=== PATIENT | male | born 1995 | race Caucasian/White ===

== ENCOUNTER 2020-11-15 06:28 | Emergency (ER) | payer OTHER, SELFPAY ==
[2020-11-15 06:33] VITALS: BP 130/76; PULSE 77; RESP 18; TEMP 36.2; O2SAT 97; BMI 25.8
--- NOTE | 2020-11-15 07:00 | ED.MEDCLEAR ---
HPI - Medical Clearance General Chief complaint: Medical Clearance Stated complaint: Covid symptoms Time Seen by Provider: 11/15/20 07:00 Source: patient Mode of arrival: ambulatory Limitations: no limitations History of Present Illness HPI Narrative: headache, nausea, myalgias, slight rhinorrhea Onset (ago): day(s) (2) Alleged Intoxication: No Associated Symptoms: nausea/vomiting and weakness Related Information Allergies Allergy/AdvReac Type Severity Reaction Status Date / Time pollen/dogs Allergy Unknown Uncoded 02/22/13 00:00 watermelon Allergy Unknown Uncoded 02/22/13 00:00 Review of Systems Constitutional: Constitutional: Reports no additional constitutional complaints Eyes: Eyes: Reports no additional eye complaints ENT: Denies dizziness Cardiovascular: Cardiovascular: Reports no additional cardiovascular complaints Respiratory: Respiratory: Reports as per HPI Gastrointestinal: Gastrointestinal: Reports no additional gastrointestinal complaints Musculoskeletal: Musculoskeletal: Reports no additional musculoskeletal complaints Integumentary/Breasts: Skin/Breast: Denies rash Neurologic: Reports system reviewed and no additional complaints, except as documented, Denies dizziness and Denies Sensory deficit (Neuro) Psychiatric: Psychiatric: Denies anxiety [facility] Social History Social History Advance Directives: No Physical Exam Vital Signs: Vital Signs: Last Vital Signs Temp 97.1 F 11/15/20 06:33 Pulse 77 11/15/20 06:33 Resp 18 11/15/20 06:33 BP 130/76 11/15/20 06:33 Pulse Ox 97 11/15/20 06:33 Body Mass Index 25.8 Const: General: healthy appearing Nutritional Appearance: average body habitus Orientation/consciousness: oriented to person and patient oriented x3 Limitations: no limitations HENMT: Head: Yes normal to inspection Ears: external ears normal General nose exam: Normal external nose present Mouth: Normal oral and palatal mucosa present and oropharynx normal Throat: Yes posterior oropharynx normal Eyes: General: appearance normal, both eyes and all related structures Neck: Other: supple Neck: Yes normal visual inspection Chest: Chest palpation & inspection: normal inspection of the chest Resp: Auscultation: clear to auscultation bilaterally Cardio: Jugular venous distension: no JVD Rate: regular rate Rhythm: regular rhythm Heart sounds: S1 normal heart sound present and S2 normal heart sound present GI: Inspection: Yes normal to inspection Palpation (GI): Soft to palpation, nontender and No hepatosplenomegaly present Auscultation: normal bowel sounds : General: Yes no CVA tenderness Back/Spine/Pelvis: Back: no CVA tenderness Skin: General skin exam: no rashes or lesions noted Neuro: General: oriented to person and patient oriented x3 Cranial nerves: Yes CN's II-XII intact bilaterally Motor exam (neuro): 5/5 motor strength present throughout Sensory Exam: No Sensory deficit (Neuro) Extrem: General: Yes normal to inspection Psych: Appearance: grossly normal Course Course Course Narrative: well appearing MDM - Medical Clearance MDM Narrative Medical decision making narrative: will test for COVID and dc home Discharge Plan Discharge Clinical Impression: COVID-19 Patient Disposition: Home, Self-Care Instructions: COVID-19 (Coronavirus Disease 2019) (ED) Referrals: Bassam Bain MD [Primary Care Provider] - 2 days
[2020-11-15 07:47] LABS: COVID-19 Test Negative (Negative)
== END 2020-11-15 08:02 | disposition home or self-care (01) ==
PROVIDERS: Emergency Provider Emergency Medicine; PCP Internal Medicine
DX: U07.1 COVID-19 (principal); R51.9 Headache, unspecified; M79.10 Myalgia, unspecified site; R11.2 Nausea with vomiting, unspecified
CPT/HCPCS: 36415; 87635; 99283

== ENCOUNTER 2021-01-16 13:00 | Outpatient (REF) | payer OTHER, SELFPAY ==
[2021-01-17 11:18] LABS: SARS COV2 PCR INHOUSE NEGATIVE (Negative)
== END 2021-01-16 13:01 | disposition home or self-care (01) ==
LOC: HO.LAB 13:00
PROVIDERS: Visit Provider Internal Medicine
DX: Z20.822 Contact with and (suspected) exposure to COVID-19 (principal)
CPT/HCPCS: C9803; U0003

== ENCOUNTER 2021-05-03 07:46 | Emergency (ER) | payer OTHER, SELFPAY ==
--- NOTE | ~2021-05-03 | XR_ITS ---
EXAMINATION: XR CHEST CLINICAL INFORMATION: Cough, shortness of breath. COMPARISON: None TECHNIQUE: Frontal view of the chest was obtained. FINDINGS: The lungs are clear. The cardiomediastinal silhouette is normal in size. There is no pleural effusion or pneumothorax. No acute osseous abnormality. XR/XR chest 1V IMPRESSION: No acute cardiopulmonary findings.
[2021-05-03 07:48] VITALS: BP 134/84; PULSE 84; RESP 18; TEMP 36.7; O2SAT 98; BMI 26.6
[2021-05-03 08:11] VITALS: BP 124/74; PULSE 73; RESP 17; TEMP 36.7; O2SAT 95
[2021-05-03 08:37] LABS: COVID-19 Test Negative (Negative); IDNOW Serial# 9DD0AD1C
[2021-05-03 08:51] LABS: Strep A Nucleic Acid Negative (Negative)
--- NOTE | 2021-05-03 09:14 | ED.GENADULT ---
HPI - General Adult General Chief complaint: General Medical Stated complaint: sob Time Seen by Provider: 05/03/21 08:06 Source: patient Mode of arrival: ambulatory History of Present Illness HPI narrative: 25-year-old male with a past medical history of asthma presenting to the ED complaining of rhinorrhea, dry cough, mild SOB, chest discomfort when coughing, generalized fatigue since yesterday. Denies fever, chills, sore throat, ear pain, recent travel, sick contacts, history of blood clots Onset (ago): day(s) Related Data Previous Rx's Medication Instructions Recorded acetaminophen [Tylenol Extra 500 mg PO Q6H PRN #20 tab 05/03/21 Strength] albuterol sulfate 2 puff INHALATION Q4-6H PRN #6.7 g 05/03/21 benzonatate [Tessalon Perles] 100 mg PO TID PRN #14 cap 05/03/21 fluticasone propionate [Flonase 2 spray INTRANASAL DAILY #16 g 05/03/21 Allergy Relief] Allergies Allergy/AdvReac Type Severity Reaction Status Date / Time pollen/dogs Allergy Unknown Uncoded 02/22/13 00:00 watermelon Allergy Unknown Uncoded 02/22/13 00:00 Review of Systems Review of Systems: Constitutional: No Fever, No Chills, + fatigue ENT/Mouth: No Ear Pain, + Nasal Congestion, No Sinus Pain, No Hoarseness, No sore throat, + Rhinorrhea, No Swallowing Difficulty Cardiovascular: + Chest Pain, + SOB Respiratory: + Cough, No Sputum, No Wheezing Gastrointestinal: No Nausea, No Vomiting, No Abdominal pain Genitourinary: No Dysuria Musculoskeletal: No joint pain, No Myalgias Skin: No Skin Lesions, No rash Neuro: No Weakness, No Numbness Yes all other systems are reviewed and are negative [facility] Past Medical History Attestation statement: The following information was validated with the patient. Social History Social History Advance Directives: No Advance Directives Information Provided: No Physical Exam Vital Signs: Vital Signs: Last Vital Signs Temp 98.0 F 05/03/21 08:11 Pulse 73 05/03/21 08:11 Resp 17 05/03/21 08:11 BP 124/74 07/15/21 08:11 Pulse Ox 95 05/03/21 08:11 Body Mass Index 26.6 Const: General: cooperative, healthy appearing and no acute distress Orientation/consciousness: patient oriented x3 Limitations: no limitations HENMT: Head: Yes normal to inspection Ears: hearing grossly normal bilaterally General nose exam: Normal external nose present Face and sinus: Yes normal facial exam Mouth: Normal oral and palatal mucosa present Throat: Yes posterior oropharynx normal, Yes tonsils normal, Yes uvula midline, No peritonsillar mass and No uvular edema Eyes: General: appearance normal, both eyes and all related structures EOM: EOMs intact bilaterally Neck: Neck: Yes normal visual inspection and Yes no meningeal signs Resp: Effort & Inspection: normal respiratory effort Auscultation: clear to auscultation bilaterally, no rales and no wheezes Cardio: Rate: regular rate Heart sounds: S1 normal heart sound present and S2 normal heart sound present GI: Inspection: Yes normal to inspection Skin: Rashes: no rashes Wounds: no wounds Neuro: General: patient oriented x3 and no meningeal signs Gait exam (Neuro): Normal gait present Extrem: General: Yes normal to inspection, Yes no pedal edema and Yes no calf tenderness Course Course Course Narrative: -COVID-19 negative -CXR unremarkable > results discussed with patient including worrisome signs and symptoms and strict return precautions, he verbalized understanding feel safe for discharge home Medical Decision Making MDM Narrative Medical decision making narrative: 25-year-old male with a past medical history of asthma presenting to the ED complaining of rhinorrhea, dry cough, mild SOB, chest discomfort when coughing, generalized fatigue since yesterday. On exam vital signs stable, NAD/well-appearing, physical exam as above, lungs CTA, no pedal edema or calf tenderness. Likely viral syndrome/COVID-19. Rule out pneumonia. Low concern for PE/ACS Plan: CXR, COVID-19 testing, rapid strep, anticipated DC home Lab Data Labs: Lab Results 05/03/21 05/03/21 Range/Units 08:09 08:33 COVID-19 (MANOJ) Negative (Negative) COVID-19 Clin Com See Note S. pyogenes GrpA CHACE Negative (Negative) Discharge Plan Discharge Clinical Impression: Acute viral syndrome Patient Disposition: Home, Self-Care Instructions: Viral Syndrome (ED) Additional Instructions: you tested negative for COVID-19 today in the emergency department as well as strep throat your x-ray was also unremarkable Use albuterol inhaler at home as needed for shortness of breath/wheezing Tessalon Perles or for cough Flonase as a nasal decongestion Rest, stay hydrated/drink plenty of fluids Please follow-up with her primary care doctor If your symptoms persist or worsen you constant worsening cough, shortness of breath, chest pain, or fever unresolved with Tylenol or Motrin at home please return to the ED Prescriptions: New albuterol sulfate 90 mcg/actuation HFA aerosol inhaler 2 puff inhalation Q4-6H PRN (Reason: shortness of breath or wheezing) Qty: 6.7 RF: 0 acetaminophen [Tylenol Extra Strength] 500 mg tablet 500 mg PO Q6H PRN (Reason: pain or fever) Qty: 20 RF: 0 benzonatate [Tessalon Perles] 100 mg capsule 100 mg PO TID PRN (Reason: cough) Qty: 14 RF: 0 fluticasone propionate [Flonase Allergy Relief] 50 mcg/actuation spray,suspension 2 spray intranasal DAILY Qty: 16 RF: 0 Referrals: Bassam Bain MD [Primary Care Provider] - 2 days Stand Alone Forms: Work/School Release
== END 2021-05-03 09:24 | disposition home or self-care (01) ==
PROVIDERS: Physician Assistant; Emergency Provider Emergency Medicine; PCP Internal Medicine
DX: B34.9 Viral infection, unspecified (principal); J45.909 Unspecified asthma, uncomplicated; Z20.822 Contact with and (suspected) exposure to COVID-19
CPT/HCPCS: 36415; 71045; 87635; 87651; 99283

== ENCOUNTER → 2021-12-24 15:04 | Outpatient (BNVA) | payer OTHER, SELFPAY | PROVIDERS: PCP Internal Medicine; Visit Provider Physician Assistant Medical | DX: M79.601 Pain in right arm (principal) | CPT/HCPCS: 72050; 99203 ==

== ENCOUNTER → 2021-12-25 14:54 | Outpatient (BNVA) | payer OTHER, SELFPAY | PROVIDERS: PCP Internal Medicine; Visit Provider Internal Medicine | DX: M79.601 Pain in right arm (principal); M54.2 Cervicalgia | CPT/HCPCS: 99213 ==

== ENCOUNTER → 2021-12-31 13:39 | Outpatient (BNVA) | payer OTHER, SELFPAY | PROVIDERS: PCP Internal Medicine; Visit Provider Internal Medicine | DX: M24.811 Other specific joint derangements of right shoulder, not elsewhere classified (principal) | CPT/HCPCS: 99213 ==

== ENCOUNTER → 2022-01-07 13:36 | Outpatient (BNVA) | payer OTHER, SELFPAY | PROVIDERS: PCP Internal Medicine; Visit Provider Internal Medicine | DX: M25.511 Pain in right shoulder (principal) | CPT/HCPCS: 73030; 99213 ==

== ENCOUNTER → 2022-01-15 13:10 | Outpatient (BNVA) | payer OTHER, SELFPAY | PROVIDERS: PCP Internal Medicine; Visit Provider Internal Medicine | DX: M25.511 Pain in right shoulder (principal) | CPT/HCPCS: 99213 ==

== ENCOUNTER → 2022-01-24 10:02 | Outpatient (BNVA) | payer OTHER, SELFPAY | PROVIDERS: PCP Internal Medicine; Visit Provider Physician Assistant | DX: M75.21 Bicipital tendinitis, right shoulder (principal) | CPT/HCPCS: 99202 ==

== ENCOUNTER → 2022-01-25 14:44 | Outpatient (BNVA) | payer OTHER, SELFPAY | PROVIDERS: PCP Internal Medicine; Visit Provider Internal Medicine | DX: M79.601 Pain in right arm (principal) | CPT/HCPCS: 99213 ==

== ENCOUNTER 2022-02-01 13:03 | Outpatient (REF) | payer OTHER, SELFPAY ==
--- NOTE | ~2022-02-01 | MR_ITS ---
EXAMINATION: MR SHOULDER WITHOUT CONTRAST, RIGHT CLINICAL INFORMATION: Shoulder pain COMPARISON: None TECHNIQUE: MRI of the shoulder without contrast was performed on a high-field scanner. FINDINGS: ROTATOR CUFF: Mild heterogeneous signal possible mild supraspinatus and infraspinatus tendinosis. No focal tear. Teres minor is intact. Possible mild subscapularis tendinosis. No muscle atrophy or fatty infiltration. BICEPS: Intact CORACOACROMIAL ARCH: The undersurface of the acromion is curved with no subacromial spur. Mild acromioclavicular arthritis. LABRUM/CAPSULE: No definite labral tear is seen. Inferior capsule is intact GLENOHUMERAL JOINT/MARROW: Marrow signal normal limits. No fracture. No significant effusion.. MR/MR shoulder RT wo con IMPRESSION: Possible mild supraspinatus, infraspinatus and subscapularis tendinosis. No focal rotator cuff tear is seen. Mild acromioclavicular arthritis.
== END 2022-02-01 13:04 | disposition home or self-care (01) ==
LOC: HO.MRI 13:03
PROVIDERS: Visit Provider Internal Medicine
DX: M25.511 Pain in right shoulder (principal)
CPT/HCPCS: 73221

== ENCOUNTER 2022-02-27 14:00 | Outpatient (RCR) | payer OTHER, SELFPAY ==
--- NOTE | 2022-03-06 15:04 | MHC.PT.DC ---
[facility] [place] Office [place] Office [place] Office [address] Julieta Ford 140 [facility] [phone] F: [phone] F: [phone] F: [phone] F: [phone] Physical Therapy Discharge Report Diagnosis: R brachial plexus injury Date of Surgery: N/A Date of Evaluation: 01/18/22 Date of Discharge: 03/06/22 Treatments to Date: 6 Cancellations to Date: 6 No Shows to Date: 1 Discharge Status: Improved Function Independent with HEP Patient Elected to Stop Discharge Summary: The patient called to discharge himself from physical therapy secondary to feeling better. He is independent with his home exercise program including a self-made vincent system to stretch his shoulder. He underwent iontophoresis treatment with great results. He is discharged per his request. Electronically signed by: Rita Henriquez PT, DPT Please sign and return to therapist. Thank you for your referral.
--- NOTE | 2022-03-06 15:05 | MHC.PT.EP ---
[facility] [place] Office [place] Office [place] Office [address] Julieta Ford [address] [phone] F: [phone] F: [phone] F: [phone] F: [phone] Physical Therapy Plan of Care Date of Evaluation: Date of Surgery: N/A Diagnosis: R brachial plexus injury Assessment: pt presents to physical therapy with pain, decreased range of motion, decreased strength, impaired functional mobility, impaired postural awareness, and gait deviations. pt is a good candidate for skilled PT due to age, potential remediation of impairments, typical disease/condition progression and prognosis, comorbidities, and motivation. pt would benefit from tailored strengthening and stretching exercise program, functional training, gait training, postural re-training, neuromuscular re-education, modalities as needed for pain, equipment safety demonstration. Frequency and Duration: The patient will be seen 2x/wk for 6 wks Short Term Goals: pt will be I w/ HEP to promote self-management of condition. pt will improve R shoulder flexion and abduction by 10 degrees to promote ease in reaching for objects on higher shelves. Penitentiary Goals: pt will report a statistically significant improvement in self-reported outcome measure, SPADI, to promote return to PLOF. pt will perform x5 reps of overhead lifting of 10# w/ proper form and mechanics and no verbal cueing to promote return to work-related activities. Treatment Plan: Modalities to reduce pain, spasms and effusion. Manual therapy to restore motion and function. Therapeutic exercise to improve strength and flexibility. Neuromuscular re-education for posture and balance. Therapeutic activities to return to functional activities of daily living. Electronically signed by: Rita Henriquez PT, DPT Please sign and return to therapist. Thank you for your referral.
== END 2022-03-06 15:05 | disposition home or self-care (01) ==
LOC: HO.PT 14:00
PROVIDERS: PCP Internal Medicine; Visit Provider Internal Medicine
DX: M75.21 Bicipital tendinitis, right shoulder (principal)
CPT/HCPCS: 97033; 97110; 97112; 97162

== ENCOUNTER → 2022-03-14 12:52 | Outpatient (BNVA) | payer OTHER, SELFPAY | PROVIDERS: PCP Internal Medicine; Visit Provider Physician Assistant | DX: M75.21 Bicipital tendinitis, right shoulder (principal) | CPT/HCPCS: 99212 ==

== ENCOUNTER 2024-03-07 21:20 | Day surgery (SDC) | payer OTHER, SELFPAY ==
--- NOTE | ~2024-03-07 | XR_ITS ---
EXAMINATION: XR SOFT TISSUE NECK CLINICAL INDICATION: Food stuck in the throat COMPARISON: Food stuck in her throat TECHNIQUE: 2 views of the soft tissue neck were obtained. FINDINGS: Soft tissue films of the neck demonstrate a normal larynx, pharynx and upper trachea. No soft tissue swelling or opaque foreign body is demonstrated. XR/XR soft tissue neck IMPRESSION: Unremarkable soft tissue neck examination.
[2024-03-07 21:22] VITALS: BP 152/102; PULSE 86; RESP 20; TEMP 37.1; O2SAT 97; BMI 31.9
--- NOTE | 2024-03-07 22:26 | ED.GENADULT ---
HPI - General Adult General Chief complaint: Skin/Abscess/Foreign Body Stated complaint: food stuck in his throat/breathing ok? Time Seen by Provider: 03/07/24 22:01 History of Present Illness HPI narrative: Patient is a 28-year-old male was eating a piece of steak at approximately 16:00. Since then was unable to swallow. Unable to keep down own saliva. There has no change in voice. There has no difficulty breathing. Unable to keep down any fluids. Came to the ED. patient from home. No systemic complaints. No significant past medical history. Not on blood thinners. Related Data Previous Rx's ?Medication ?Instructions ?Recorded acetaminophen 500 mg tablet 500 mg PO Q6H PRN pain or fever 05/03/21 (Tylenol Extra Strength) #20 tabs albuterol sulfate 90 mcg/actuation 2 puff inhalation Q4-6H PRN 05/03/21 aerosol inhaler shortness of breath or wheezing #6.7 grams benzonatate 100 mg capsule 100 mg PO TID PRN cough #14 caps 05/03/21 (Tessalon Perles) fluticasone propionate 50 2 spray intranasal DAILY #16 grams 05/03/21 mcg/actuation nasal spray,suspension (Flonase Allergy Relief) Allergies Allergy/AdvReac Type Severity Reaction Status Date / Time pollen/dogs Allergy Unknown Unknown Uncoded 03/07/24 21:25 watermelon Allergy Unknown Unknown Uncoded 03/07/24 21:25 Review of Systems Review of Systems: No fever no chills no chest pain or shortness breath no diaphoresis Yes all other systems are reviewed and are negative PMFSH Past Medical History Attestation statement: The following information was validated with the patient. 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 Oriented X3. No acute distress. Eyes: Pupils equal, round and reactive to light. ENT: Pharynx normal. Neck: Normal inspection. Neck supple. No lymph nodes noted. No crepitus CVS: Normal heart rate and rhythm. Pulses normal. Normal S1 and S2 Respiratory: No respiratory distress. Breath sounds normal. No Wheezing. No rales Abdomen: Soft and nontender. No rigidity. No distention. good BS x4 Skin: Skin warm and dry. Normal skin color. Normal skin turgor. Extremities: No lower extremity edema. Neurovascular intact to all extremities. No Lacerations. No Rash Neuro: Oriented X 3. No motor deficit. No sensory deficit. Moving all extermities. No slurred speech Medications Administered Generic Name Dose Route Start Last Admin Trade Name Freq PRN Reason Stop Dose Admin Sodium Chloride 1,000 mls @ 999 mls/hr 03/07/24 22:30 03/07/24 23:10 Ns IV 03/07/24 23:30 999 mls/hr .Q1H1M DOMINGA Administration Discontinued Medications Generic Name Dose Route Start Last Admin Trade Name Freq PRN Reason Stop Dose Admin Glucagon 1 mg 03/07/24 22:20 03/07/24 23:10 Glucagon Hcl 1 Mg Vial IVPUSH 03/07/24 22:21 1 mg ONCE ONE Administration Medical Decision Making Medical Decision Making [facility] Narrative: Patient's history consistent with food impaction. GI was contacted. A dose of glucagon with IV fluids ordered. Baseline labs ordered. Baseline labs okay. Patient's given glucagon with no relief. GI present. Anesthesia present. Patient going to the endoscopy suite Differential Diagnosis Differential Diagnoses: The differential diagnosis associated with the presentation includes Food impaction, airway compromise. Admission/Observation Consideration of admission/observation: Escalation of care including admission/observation considered Consult Healthcare Provider Management of the patient was discussed with: Fan Mail Editor (GI, anesthesia) Lab Data [facility] Lab Attestation statement: I reviewed the patient's lab results. 03/07/24 23:05 03/07/24 23:05 Labs: Lab Results 03/07/24 Range/Units 23:05 WBC 10.7 (4.8-10.8) X10*3/uL RBC 4.94 (4.60-5.80) X10*6/uL Hgb 15.3 (14.0-18.0) g/dl Hct 43.6 (42.0-52.0) % MCV 88.3 (80.0-98.0) fL MCH 31.0 (27.0-33.0) pg MCHC 35.1 (31.0-36.0) g/dl RDW 12.4 (11.0-16.0) % Plt Count 186 (160-400) X10*3/uL MPV 10.8 (9.4-12.4) fL Immature Gran % (Auto) 0.3 (0.0-0.4) % Neut % (Auto) 62.6 (45-73) % Lymph % (Auto) 26.5 (20-40) % [place] % (Auto) 6.5 (2-11) % Eos % (Auto) 3.5 (0-4) % Baso % (Auto) 0.6 (0-2) % Lymph # (Auto) 2.8 (1.2-4.9) X10*3/uL [place] # (Auto) 0.7 (0.1-1.2) X10*3/uL Eos # (Auto) 0.4 (0.0-0.4) X10*3/uL Baso # (Auto) 0.1 (0.0-0.2) X10*3/uL Abs Immat Gran (auto) 0.03 (0.00-0.03) X10*3/uL Absolute Neuts (auto) 6.7 (2.0-8.3) x10*3/uL Absolute Nucleated RBC 0.000 (0.0-0.012) X10*3/uL Nucleated RBC % (auto) 0.0 (0.0-0.2) /100WBC Sodium 144 (135-145) mmol/L Potassium 3.8 (3.3-5.1) mmol/L Chloride 108 (96-108) mmol/L Carbon Dioxide 25 (22-29) mmol/L Anion Gap 15 (12-20) BUN 14 (9-16) mg/dL Creatinine 1.07 (0.5-1.4) mg/dL Estim Creat Clear Calc 114.0 Estimated GFR > 60 Random Glucose 93 (60-115) mg/dL Calcium 9.9 (8.4-10.2) mg/dL Independent Historian Clinical information obtained from an independent historian. History obtained from or confirmed by: Spouse Discharge Plan Discharge Clinical Impression: Food impaction of esophagus Patient Disposition: Admitted As Inpatient Prescriptions: No Action albuterol sulfate 90 mcg/actuation HFA aerosol inhaler 2 puff inhalation Q4-6H PRN (Reason: shortness of breath or wheezing) Qty: 6.7 0RF acetaminophen [Tylenol Extra Strength] 500 mg tablet 500 mg PO Q6H PRN (Reason: pain or fever) Qty: 20 0RF benzonatate [Tessalon Perles] 100 mg capsule 100 mg PO TID PRN (Reason: cough) Qty: 14 0RF fluticasone propionate [Flonase Allergy Relief] 50 mcg/actuation spray,suspension 2 spray intranasal DAILY Qty: 16 0RF Rx Instructions: administer into each nostril Print Language: Italian
[2024-03-07 23:09] LABS: MANUAL DIFF FLAG NO
[2024-03-07 23:10] LABS: Basophils Absolute Auto 0.1 X10*3/uL (0.0-0.2); Basophils Percent Auto 0.6 % (0-2); Eosinophils Absolute Auto 0.4 X10*3/uL (0.0-0.4); Eosinophils Percent Auto 3.5 % (0-4); Hematocrit 43.6 % (42.0-52.0); Hemoglobin 15.3 g/dl (14.0-18.0); Imm Gran Abs Auto 0.03 X10*3/uL (0.00-0.03); Imm Gran Pct Auto 0.3 % (0.0-0.4); Lymphocytes Absolute Auto 2.8 X10*3/uL (1.2-4.9); Lymphocytes Percent Auto 26.5 % (20-40); Mean Corpuscular HGB Conc 35.1 g/dl (31.0-36.0); Mean Corpuscular Volume 88.3 fL (80.0-98.0); Mean Platelet Volume 10.8 fL (9.4-12.4); Monocytes Absolute Auto 0.7 X10*3/uL (0.1-1.2); Monocytes Percent Auto 6.5 % (2-11); Neutrophils Absolute Auto 6.7 x10*3/uL (2.0-8.3); Neutrophils Percent Auto 62.6 % (45-73); Platelet Count 186 X10*3/uL (160-400); Red Blood Count 4.94 X10*6/uL (4.60-5.80); Red Cell Distribution Width 12.4 % (11.0-16.0); White Blood Count 10.7 X10*3/uL (4.8-10.8)
[2024-03-07] MEDS: 0.9 % Sodium Chloride 1,000 ML 999 ML IV (23:10)
[2024-03-07] MEDS: glucagon HCL 1 MG VIAL IVPUSH (23:10)
--- NOTE | 2024-03-07 23:17 | PM.EVENT ---
Event Note Date of Service: 03/07/24 Event Note: GI Consult-Full note dictated Imp: Esophageal obstruction due to steak Rec: EGD tonight. Full consent obtained from him and his , including risks of bleeding and perforation. They are comfortable with this plan. Thanks Time Spent With Patient Time: Total time managing care of this patient today ____ minutes.
--- NOTE | 2024-03-07 23:19 | MHC.SHP ---
Pre-Procedural Eval Section A - 24 Hr Update-Section A only Date of Service: 03/07/24 The patient is an INPATIENT: No The patient has been examined within 24 hours of the surgical procedure. The History & Physical has been completed within 30 days and I have reviewed it.: Yes Section B - Complete if H&P > 30 days Chief Complaint: food stuck in his throat/breathing ok? Allergies: Allergies Allergy/AdvReac Type Severity Reaction Status Date / Time pollen/dogs Allergy Unknown Unknown Uncoded 03/07/24 21:25 watermelon Allergy Unknown Unknown Uncoded 03/07/24 21:25 Plan I have reviewed the history and physical and performed a pertinent physical examination on my patient. No changes have occurred unless specified. Time Spent With Patient Time: Total time managing care of this patient today ____ minutes.
[2024-03-07 23:22] LABS: Anion Gap 15 (12-20); Blood Urea Nitrogen 14 mg/dL (9-16); Calcium 9.9 mg/dL (8.4-10.2); Carbon Dioxide 25 mmol/L (22-29); Chloride 108 mmol/L (96-108); Estimated Glomerular Filt Rate > 60; Glucose Random 93 mg/dL (60-115); Potassium 3.8 mmol/L (3.3-5.1); Sodium 144 mmol/L (135-145)
--- NOTE | 2024-03-07 23:56 | CONS_ITS ---
DATE OF SERVICE: 03/07/2024 REQUESTING PHYSICIAN: Dr. Win from the emergency department. HISTORY OF PRESENT ILLNESS: This has been obtained from the patient and his . The patient is a 28-year-old healthy male, who was well up until beginning to eat his steak dinner this evening. His first bite became lodged in his esophagus and he has been unable to swallow saliva nor liquids since that time. He denies any previous history of similar problems. He typically eats very comfortably and denies any significant heartburn, dysphagia, early satiety, nausea, nor vomiting. He does have some chest discomfort at the present time, but no chest pain per se and no trouble breathing. He denies any abdominal pain. He has never had an endoscopy nor upper GI series. He did receive IV glucagon in the ER without any effect as of yet. He is still unable to swallow saliva. MEDICATIONS AT HOME: None. PAST MEDICAL HISTORY: He denies any surgeries. He had asthma as a child. He denies any medical problems such as diabetes, heart disease, or lung disease currently. 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 He does not smoke cigarettes. He stopped smoking marijuana about 8 months ago. He drinks about 5 or 6 beers most days a week. FAMILY HISTORY: Noncontributory. REVIEW OF SYSTEMS: CONSTITUTIONAL: He was feeling well up until this episode today. CARDIAC: No chest pain. PULMONARY: No cough or hemoptysis. GI: As above. URINARY: No dysuria, no hematuria. NEUROLOGIC: No headache or seizures. PHYSICAL EXAMINATION: GENERAL: The patient is a pleasant alert, fairly comfortable male, in no distress. SKIN: Warm and dry. Anicteric sclerae. NECK: Supple without lymphadenopathy. No crepitus. CHEST: Clear bilaterally. There is no chest wall crepitus. CARDIAC: Normal S1, S2. ABDOMEN: Soft, nondistended, nontender without mass. EXTREMITIES: Without edema. IMAGING DATA: He had a soft tissue x-ray of his neck that was unremarkable. LABORATORY DATA: A CBC was normal. Chemistry profile was normal. IMPRESSION: Given the patient's clinical history, I suspect the esophageal obstruction was most likely in relation to a large piece of meat as opposed to any underlying intrinsic esophageal disease. Given his refractory dysphagia, he will undergo upper endoscopy this evening. Full consent obtained from him for this, including risks of bleeding and perforation. This has been discussed with the patient and his in detail, and they are both comfortable with this plan. Thank you for the consultation. MD KELLY Olivera/DOLORES / [phone]
--- NOTE | 2024-03-08 00:33 | P.BOP_ITS ---
Brief Operative Note Date of Service: 03/07/24 Pre-op diagnosis: Esophageal obstruction from food Post-op diagnosis: same Procedure: Upper endoscopy with removal of food bolus Surgeon: Jerald Adkins MD Anesthesia: MAC Was an Fund Controller used for this Procedure?: No Estimated blood loss (mL): 2.0 Pathology: none sent Condition: stable Disposition: PACU
--- NOTE | 2024-03-08 00:35 | PM.EVENT ---
Event Note Date of Service: 03/07/24 Event Note: GI-Upper endoscopy with removal of food bolus. Full note dictated Findings: 1. Large meat bolus in mid-esophagus. Would not push into stomach. Therefore, time spent breaking it up with the biopsy forceps. Multiple pieces then removed from the patient with the retrieval net, but primarily with the large Alligator forceps. 2. Once esophagus was empty the EG Junction was visualized at 38cm. There was erythema and edema, but no significant esophagitis, ulceration, ring, stricture, nor mucosal tears. The scope easily entered the stomach. Fluid was suctioned and brief inspection appeared normal, but a complete evaluation was not done due to some retained food and fluid, particularly in the proximal stomach. Remainder of the esophagus appeared normal. Plan. PPI x 1 month. Observe. I don't think he needs an EGD nor UGI series in follow up given the otherwise negative exam. I suspect this was too large a piece of food. See me prn. D/W his significant other.. Time Spent With Patient Time: Total time managing care of this patient today ____ minutes.
[2024-03-08 00:55] VITALS: BP 140/80; PULSE 80; RESP 18; TEMP 36.3; O2SAT 96
--- NOTE | 2024-03-08 00:58 | HO.ANESPROP2 ---
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 Meds Allergies Allergy/AdvReac Type Severity Reaction Status Date / Time pollen/dogs Allergy Unknown Unknown Uncoded 03/07/24 21:25 watermelon Allergy Unknown Unknown Uncoded 03/07/24 21:25 Exam Height,Weight and Vital Signs: Height 5 ft 8 in Weight 95.254 kg Last Vital Signs Temp 97.4 F 03/08/24 00:55 Pulse 80 03/08/24 00:55 Resp 18 03/08/24 00:55 BP 140/80 H 03/08/24 00:55 Pulse Ox 96 03/08/24 00:55 O2 Del Method Room Air 03/08/24 00:55 Pertinent Lab Results Pertinent Lab Results: Laboratory Tests 03/07/24 23:05 WBC 10.7 RBC 4.94 Hgb 15.3 Hct 43.6 MCV 88.3 MCH 31.0 MCHC 35.1 RDW 12.4 Plt Count 186 MPV 10.8 Immature Gran % (Auto) 0.3 Neut % (Auto) 62.6 Lymph % (Auto) 26.5 [place] % (Auto) 6.5 Eos % (Auto) 3.5 Baso % (Auto) 0.6 Lymph # (Auto) 2.8 [place] # (Auto) 0.7 Eos # (Auto) 0.4 Baso # (Auto) 0.1 Abs Immat Gran (auto) 0.03 Absolute Neuts (auto) 6.7 Absolute Nucleated RBC 0.000 Nucleated RBC % (auto) 0.0 Sodium 144 Potassium 3.8 Chloride 108 Carbon Dioxide 25 Anion Gap 15 BUN 14 Creatinine 1.07 Estim Creat Clear Calc 114.0 Estimated GFR > 60 Random Glucose 93 Calcium 9.9 Airway Mallampati Class: II TM Dist: >3cm Neck ROM: Full Assessment and Plan Assessment Anesthesia Assessment: Anesthesia Plan Discussed and Chart Reviewed Final Anesthetic Review Family History of Problems with Anesthesia: No History of Problems with Anesthesia: No NPO: Yes ASA Class: II and Emergency Final Preanesthetic Review: No Changes in Pt Med Stat, Meds/Allgs Chart Reviewed, Consent Obtained/Reviewed and Anes Risks/Benef Reviewed Patient Risk: Low Procedure Risk: Intermediate Anesthetic Plan Anesthetic Plan: GA Disposition: Standard PACU
[2024-03-08 01:00] VITALS: BP 145/61; PULSE 80; RESP 14; O2SAT 95
[2024-03-08 01:05] VITALS: BP 117/74; PULSE 85; RESP 16; O2SAT 95
[2024-03-08 01:10] VITALS: BP 127/72; PULSE 84; RESP 16; O2SAT 95
[2024-03-08 01:25] VITALS: BP 105/75; PULSE 82; RESP 16; O2SAT 98
[2024-03-08 01:40] VITALS: BP 127/76; PULSE 70; RESP 16; TEMP 36.3; O2SAT 96
--- NOTE | 2024-03-08 01:51 | OP_ITS ---
DATE OF SERVICE: 03/07/2024 SURGEON: Jerald Adkins MD INDICATIONS: The patient presents for evaluation of acute dysphagia in relation to food. Full consent obtained from him for this, including risks of bleeding and perforation. PREOPERATIVE DIAGNOSIS: Esophageal food obstruction. POSTOPERATIVE DIAGNOSIS: Esophageal food obstruction. PROCEDURE PERFORMED: Upper endoscopy with removal of esophageal food impaction. ESTIMATED BLOOD LOSS: COMPLICATIONS: ANESTHESIA: Medication used, general anesthesia. Glucagon 1 mg IV x1. ASSISTANTS: SPECIMENS: DESCRIPTION OF PROCEDURE: The patient was placed in the supine position. The Olympus video gastroscope was passed in the posterior oropharynx and upper esophagus under direct vision. The scope was passed slowly to approximately 25 cm. At this point, a large food bolus was seen. This was able to be pushed approximately 5 or 10 cm but could not be pushed into the stomach. It appeared to be quite large and somewhat fatty. I then spent time breaking up the food bolus as best I could with a biopsy forceps. Initial pieces were withdrawn with a retrieval net. I then removed the remainder of the food bolus in pieces with the larger alligator forceps. This took numerous passes with the gastroscope to accomplish. Once the esophagus was completely empty, I was then able to achieve a good visualization. The gastroesophageal junction appeared at 38 cm. This appeared patent and allowed easy passage of the scope. There was a large amount of fluid and some food in the stomach. The fluid was suctioned away as best as possible. I did not evaluate the distal stomach nor duodenum. The proximal stomach in the forward viewing and retroflexed position appeared normal, although again there was some residual liquid and food that was obscuring the view. The scope was then withdrawn back in the esophagus. The entire esophagus was carefully inspected. I did not visualize any sign of mucosal tears, esophagitis, ulceration, stricture, nor ring. The scope was then withdrawn from the patient. He tolerated the procedure well and was returned to the recovery area in stable condition. IMPRESSION: Food impaction of esophagus, status post endoscopic removal. Overall, I suspect the obstruction was in relation to a large piece of food rather than any intrinsic esophageal disease based on the exam. At this point, I have advised him to be sure to cut up his food carefully, eat slowly, and chew thoroughly. I do not think he needs a repeat endoscopy nor GI series at this point, as long as he remains asymptomatic as he was not having any problems before this, and again I feel this was related to a large piece of food rather than any intrinsic esophageal disease. I did advise him to buy a 1-month supply of [id number] omeprazole 20 mg and to use that daily for the 1 month. I do not think he needs to be on it chronically. He has been instructed to call me if he has trouble swallowing again. However at this point, I do not think any further workup is needed. This has been discussed with his significant other as well. MD KELLY Olivera/DOLORES / [phone]
== END 2024-03-09 07:44 ==
LOC: HO.ED 03-08 00:47 → HO.SSS 03-09 08:14
PROVIDERS: Internal Medicine; Emergency Provider Emergency Medicine Emergency Medical Services; PCP Internal Medicine; Visit Provider Physician Assistant Medical
PROC: 0DJ08ZZ Inspection of Upper Intestinal Tract, Via Natural or Artificial Opening Endoscopic (ICD-10-PCS; CPT 43235; principal; 2024-03-07 11:45)
DX: T18.128A Food in esophagus causing other injury, initial encounter (principal); W44.F3XA Food entering into or through a natural orifice, initial encounter; Y93.89 Activity, other specified; Y92.9 Unspecified place or not applicable; Y99.9 Unspecified external cause status
CPT/HCPCS: 43247; 36415; 70360; 80048; 85025; 96361; 96374; 99283; 99285; J1100; J1610; J2250; J2405; J2704; J3010

== ENCOUNTER 2024-03-22 18:01 | Emergency (ER) | payer OTHER, SELFPAY ==
[2024-03-22 18:46] VITALS: BP 131/69; PULSE 98; RESP 16; TEMP 36.4; O2SAT 97; BMI 30.1
--- NOTE | 2024-03-22 18:49 | ED_ITS ---
HPI - General Adult General Chief complaint: General Medical Stated complaint: cut finger last weekend, cant move distal joint Time Seen by Provider: 03/22/24 18:49 Source: patient, RN notes reviewed and old records reviewed Mode of arrival: ambulatory Limitations: no limitations History of Present Illness ED Provider: Sandra HPI narrative: 28-year-old male presents for evaluation of a wound check. 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 require surgery He denies any injury since the initial one 1 week ago Related Data Previous Rx's ?Medication ?Instructions ?Recorded acetaminophen 500 mg tablet 500 mg PO Q6H PRN pain or fever 05/03/21 (Tylenol Extra Strength) #20 tabs albuterol sulfate 90 mcg/actuation 2 puff inhalation Q4-6H PRN 05/03/21 aerosol inhaler shortness of breath or wheezing #6.7 grams benzonatate 100 mg capsule 100 mg PO TID PRN cough #14 caps 05/03/21 (Tessalon Perles) fluticasone propionate 50 2 spray intranasal DAILY #16 grams 05/03/21 mcg/actuation nasal spray,suspension (Flonase Allergy Relief) Allergies Allergy/AdvReac Type Severity Reaction Status Date / Time No Known Allergies Allergy Verified 03/22/24 18:50 Review of Systems Musculoskeletal: Musculoskeletal: Reports limited range of motion PMFSH Social History Social History Advance Directives: No Advance Directives Information Provided: No Current occupational status: employed 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 Physical Exam ED Vital Signs: Vital Signs - 24 hr 03/22/24 18:46 Temperature 97.6 F Pulse Rate 98 Respiratory Rate 16 Blood Pressure 131/69 Pulse Oximetry 97 Oxygen Delivery Method Room Air BMI result Body Mass Index 30.1 Const General: healthy appearing, comfortable, no acute distress, alert and awake Nutritional Appearance: well nourished Orientation/consciousness: patient oriented x3 HENMT Head: Yes normocephalic and Yes atraumatic Eyes Eyelids: Yes eyelids normal Conjunctivae: conjunctivae normal Sclerae: sclerae normal Corneas: corneas normal Pupils: Equal, round and reactive pupils present EOM: EOMs intact bilaterally Neck Neck: Yes full ROM Resp Effort & Inspection: normal respiratory effort, able to speak in complete sentences and not labored Skin General skin exam: elasticity normal Neuro General: patient oriented x3 Cranial nerves: Yes Equal, round and reactive pupils present and Yes Bilaterally intact EOM present Cognition (Neuro): normal cognition Extrem Other: Patient's wound to the left 3rd finger appears to be healing well. Sutures remain intact. No surrounding erythema, edema or drainage. Patient is able to fully extend the finger at the MCP, PIP and PIP joints. He is able to flex the left 3rd finger at the MCP and PIP but not the DIP joint. He has no range of motion at the DIP joint with flexion. Medical Decision Making Medical Decision Making MDM Narrative: 28-year-old male presents for evaluation inability to move his left 3rd finger. He appears to have injury to the flexor tendon of the left 3rd finger. The injury happened 1 week ago. The patient will be referred to hand surgery. There was no additional injury. It is too soon to remove the patient's sutures. Differential Diagnosis Differential Diagnoses: The differential diagnosis associated with the presentation includes Laceration Wound check Tendon laceration Nerve injury Discharge Plan Discharge Clinical Impression: Finger injury Patient Disposition: Home, Self-Care Instructions: Tendon Laceration (ED) Additional Instructions: There is some concern that you have a flexor tendon laceration. I recommend that you follow-up with Dr. Rose Adams, hand surgery Call tomorrow morning to schedule an appointment Prescriptions: No Action albuterol sulfate 90 mcg/actuation HFA aerosol inhaler 2 puff inhalation Q4-6H PRN (Reason: shortness of breath or wheezing) Qty: 6.7 0RF acetaminophen [Tylenol Extra Strength] 500 mg tablet 500 mg PO Q6H PRN (Reason: pain or fever) Qty: 20 0RF benzonatate [Tessalon Perles] 100 mg capsule 100 mg PO TID PRN (Reason: cough) Qty: 14 0RF fluticasone propionate [Flonase Allergy Relief] 50 mcg/actuation spray,suspension 2 spray intranasal DAILY Qty: 16 0RF Rx Instructions: administer into each nostril Referrals: Rose Adams MD [Physician] - (? left 3rd finger flexor tendon laceration) Discharge Date/Time: 03/22/24 19:02 Print Language: Romanian
--- NOTE | 2024-03-22 19:01 | PC.NURSE ---
PT WAS SEEN BY TRIAGE PROVIDER AND DISCHARGED WITH RECOMMENDATIONS FOR ORTHO CONSULT
== END 2024-03-22 19:02 | disposition home or self-care (01) ==
LOC: HO.ED 18:54
PROVIDERS: Emergency Provider Internal Medicine; PCP Internal Medicine
DX: Z48.01 Encounter for change or removal of surgical wound dressing (principal); S61.213D Laceration without foreign body of left middle finger without damage to nail, subsequent encounter; W26.0XXD Contact with knife, subsequent encounter
CPT/HCPCS: 99281; 99282

== ENCOUNTER 2024-03-24 14:19 | Outpatient (AMB) | payer OTHER, SELFPAY ==
--- NOTE | 2024-03-24 14:39 | A.OFFVIS_ITS ---
Vital Signs 03/24/24 14:45 Height 5 ft 10 in Weight 210 lb BMI 30.1 Intake Visit Reasons: FC -Lt 3rd Finger Lac 03/15/25-Flexor Tendon injury Intake Note: Jesus is a 28 year old ambidextrous male who presents today for a laceration of his left middle finger 03/13/27. Patient reports that he was cutting an avocado and he cut his finger with a steak knife. he reports that he was seen at an urgent care where he received sutures. He is unable to bend the finger, he is able to fully extend. Numbness is felt at the tip of the finger. No abx. Allergies No Known Allergies Allergy (Verified 03/24/24 14:43) HPI HPI FC -Lt 3rd Finger Lac 03/15/25-Flexor Tendon injury: Details: Jesus is a 28 year old right hand dominant man who presents for a left middle finger tendon laceration, DOI: 03/13/24. He was cutting an Avocado, trying to remove the seed, and cut his finger with a steak knife. He was seen in the ED in [place] where his finger was sutured. He says he is able to fully extend his middle finger, but he is unable to bend at his fingertip since his injury. He has some numbness to the tip of the middle finger since his injury. Normal sensation to all other fingers. 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 Review of Systems Const All systems reviewed & are unremarkable except as noted in HPI and below Physical Exam Vital Signs: BMI result Body Mass Index 30.1 Const General: cooperative, healthy appearing and no acute distress Orientation/consciousness: patient oriented x3 HEENT Head: Yes normocephalic and Yes atraumatic Eyes EOM: EOMs intact bilaterally Resp Effort & Inspection: normal respiratory effort and able to speak in complete sentences Cardio Jugular venous distension: no JVD Skin General skin exam: turgor normal Rashes: no rashes Neuro General: patient oriented x3 Extrem Other: Evaluation of Left Upper Extremity: The patient is alert, oriented, and in no acute distress The patient has an oblique laceration over the volar aspect of the left middle finger middle phalanx. Neuro: Numbness in the radial aspect of the middle finger. Normal sensation in the ulnar nerve distribution of the middle finger, and normal sensation to the tips of all other digits Vascular: Cap refill brisk ROM: He can extend all his digits He can bring his thumb, index, ring, and small fingers closed to a fist, and his middle finger [ ]. No active motion at the middle finger DIP joint Skin: There is an oblique laceration extending from about the DIP flexion crease on the radial side of the middle finger obliquely and proximally over the volar aspect of the middle phalanx, sutured closed. No erythema drainage or evidence of infection. Good strong flexion at the PIP joint No active flexion at the D IP joint Decreased sensation to the radial digital nerve distribution distal to the laceration Normal sensation to the ulnar digital nerve distribution Psych Appearance: grossly normal Affect: normal affect Attitude: cooperative Assessment & Plan Assessment & Plan (1) Laceration of flexor muscle, fascia and tendon of left middle finger at wrist and hand level, initial encounter: Code(s): S66.123A - Laceration of flexor muscle, fascia and tendon of left middle finger at wrist and hand level, initial encounter Category: Medical (2) Digital nerve laceration, finger: Comment: Candy Code(s): S64.40XA - Injury of digital nerve of unspecified finger, initial encounter Category: Medical Plan Assessment & Plan: 1. Left middle finger flexor digitorum profundus tendon laceration FDS appears to be intact. DOS: 03/13/24 2. Left middle fingertip numbness, in the radial digital nerve distribution DOI: 03/13/24 I educated him about these conditions I discussed operative and non-operative treatment options The patient would like to proceed with surgery I explained that I may attempt a nerve repair to restore his fingertip sensation, but it may not be possible because of how distal the laceration is on the radial side of the finger. He expressed understanding. The risks and benefits of operative treatment were discussed with the patient and the patient wishes to proceed with surgery. These risks include, but are not limited to risk of damage to blood vessels, nerves, tendons, infection, recu rrence, incomplete relief of preoperative symptoms, persistent pain, stiffness, possible need for further surgery and the risks associated with regional blocks and anesthesia. I also educated the patient about the importance of following my instructions and the instructions of our occupational hand therapists, and of participate a in OT hand therapy for this injury. The plan is to take the patient to the operating room sometime on 03/25/24 for the following procedures: 1. Left middle finger flexor tendon repair, under general 2. Possible left middle finger radial digital nerve repair, under general All of the preoperative paperwork including the consent was reviewed today. All the patient's questions were answered. The patient is scheduled for tomorrow He denies Diabetes, blood thinners, asthma, heart, lung, kidney issues Scribed for Rose Adams MD by Sreekanth Miller, medical office technician, on 03/24/24 at 3:00 PM, EST. Medications: Discontinued acetaminophen (Tylenol Extra Strength) Discontinued Reason: Patient no longer taking 500 mg PO Q6H PRN 20 tabs 0RF pain or fever albuterol sulfate 90 mcg/actuation Discontinued Reason: Patient no longer taking 2 puffs inhalation Q4-6H PRN 6.7 grams 0RF shortness of breath or wheezing benzonatate (Tessalon Perles) Discontinued Reason: Patient no longer taking 100 mg PO TID PRN 14 caps 0RF cough fluticasone propionate 50 mcg/actuation (Flonase Allergy Relief) administer into each nostril Discontinued Reason: Patient no longer taking 2 sprays intranasal DAILY 16 grams 0RF Coding Level of Care Code New Pt Level 4 (64591) Diagnoses Laceration of flexor muscle, fascia and tendon of left middle finger at wrist and hand level, initial encounter S66.123A Digital nerve laceration, finger S64.40XA
[2024-03-24 14:45] VITALS: BMI 30.1
== END 2024-03-24 16:08 | disposition home or self-care (01) ==
PROVIDERS: PCP Internal Medicine; Visit Provider Orthopaedic Surgery
DX: S66.123A Laceration of flexor muscle, fascia and tendon of left middle finger at wrist and hand level, initial encounter (principal); S64.40XA Injury of digital nerve of unspecified finger, initial encounter
CPT/HCPCS: 99214

== ENCOUNTER → 2024-03-24 14:19 | Outpatient (BNVA) | payer OTHER, SELFPAY | PROVIDERS: PCP Internal Medicine; Visit Provider Orthopaedic Surgery ==

== ENCOUNTER 2024-03-25 10:36 | Day surgery (SDC) | payer OTHER, SELFPAY ==
[2024-03-25 12:04] VITALS: BMI 32.2
[2024-03-25 12:10] VITALS: BP 119/76; PULSE 64; RESP 16; TEMP 36.7; O2SAT 95
--- NOTE | 2024-03-25 12:35 | HO.ANESPROP2 ---
HPI - Anesthesia Eval Consult details Narrative: 28 yo M presenting for left middle finger flexor tendon repair with possible microscopic digital nerve repair PMFSH Active Problems Active Problems: All Active Problems Digital nerve laceration, finger (Acute) Laceration of flexor muscle, fascia and tendon of left middle finger at wrist and hand level, initial encounter (Acute) Food impaction of esophagus (Acute) Biceps tendonitis on right (Acute) Right upper limb pain (Acute) COVID-19 (Acute) Family History Family history of problems with anesthesia: No Surgical History History of Problems with Anesthesia: No Social History Social History Patient Tobacco Use Status: Never used Tobacco Use of substances other than those prescribed or required for medical reasons: No Are you DNR?: No Advance Directives: No Advance Directives Information Provided: Yes Current occupational status: employed 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 Meds Allergies Allergy/AdvReac Type Severity Reaction Status Date / Time No Known Allergies Allergy Verified 03/24/24 14:43 Exam Exam Date and Time: March 25, 2024 1223 Height,Weight and Vital Signs: Height 5 ft 9 in Weight 98.883 kg Airway Mallampati Class: II TM Dist: >3cm Neck ROM: Full Loose/Missing/Broken Teeth: No (patient denies any loose or broken teeth) Heart: S1S2 Lungs: CTAB Assessment and Plan Assessment Anesthesia Assessment: Anesthesia Plan Discussed and Chart Reviewed Final Anesthetic Review Family History of Problems with Anesthesia: No History of Problems with Anesthesia: No NPO: Yes ASA Class: I Final Preanesthetic Review: No Changes in Pt Med Stat, Meds/Allgs Chart Reviewed, Consent Obtained/Reviewed and Anes Risks/Benef Reviewed Patient Risk: Low Procedure Risk: Low Anesthetic Plan Anesthetic Plan: MAC: Disposition: Standard PACU
--- NOTE | 2024-03-25 13:43 | MHC.SHP ---
Pre-Procedural Eval Section A - 24 Hr Update-Section A only Date of Service: 03/25/24 The patient is an INPATIENT: No Changes since office visit: No Cold of Flu in the past 2 weeks, No New Medical Problems, No Changes in Medication and No Patient answered all questions The patient has been examined within 24 hours of the surgical procedure. The History & Physical has been completed within 30 days and I have reviewed it.: Yes Section B - Complete if H&P > 30 days Chief Complaint: Laceration of flexor muscle,Injury digital nerve Allergies: Allergies Allergy/AdvReac Type Severity Reaction Status Date / Time No Known Allergies Allergy Verified 03/24/24 14:43 Plan I have reviewed the history and physical and performed a pertinent physical examination on my patient. No changes have occurred unless specified. Time Spent With Patient Time: Total time managing care of this patient today ____ minutes.
--- NOTE | 2024-03-25 13:44 | P.OP_ITS ---
Operative Note Operative Note Date of Service: 03/25/24 Narrative: Operative Note Narrative: Preop diagnosis: 1. Left middle finger flexor digitorum profundus laceration in zone 2 Postop diagnosis: Same Procedure: 1. Left middle finger flexor digitorum profundus repair in zone 2 Surgeon: Rose Adams MD Anesthesia: General anesthesia plus regional block Findings: Left middle finger flexor digitorum profundus laceration in zone 2. The proximal cut end was located at about the A3 vincent level by the vincula. FDP repaired distal to the A4 vincent. The radial digital nerve was lacerated at its trifurcation at the D IP flexion crease. It was not repaired. Implants: None Tourniquet time: 60 minutes EBL: 5.0 ml Specimen: None Drains: None Complications: None Disposition: Brought to the recovery room in stable condition Plan: Follow-up with our OT hand therapists for a custom dorsal blocking splint and to begin the flexor tendon protocol. Follow-up in 10-14 days for wound check and suture removal Indications: The patient is 28 years old with a left middle finger FDP tendon laceration sustained while trying to get the pit out of an avocado . The risks and benefits of operative treatment, including but not limited to risk of damage to blood vessels, nerves, tendons, infection, recurrence, persistent pain or numbness, incomplete resolution of preoperative symptoms, or need for further surgery were discussed with the patient and they wished to proceed with surgery. Procedure: Once consent was obtained patient was brought back to the operating suite and placed in the operating table in a supine position. A regional block was performed by the anesthesia team. Perioperative antibiotics and anesthesia was administered by the anesthesia team. A tourniquet was applied to the proximal aspect of the left upper extremity and the limb was prepped and draped in a standard surgical fashion. The limb was elevated exsanguinated with Esmarch bandage and the tourniquet inflated to 250 mm of mercury for a total tourniquet time of 60 minutes. A Judy is a type incision was made over the volar aspect of the patient's left index finger, incorporating the oblique laceration that extended from the radial aspect of the D IP flexion crease obliquely across the middle phalanx. The incision was made through the skin to the subcutaneous tissues using a 15. Blade, and extended proximally to just distal to the A2 vincent.. Careful dissection was made down to the level of the flexor tendon sheath with care being taken to protect the neurovascular structures. The radial digital nerve was noted to be lacerated at its trifurcation at the radial aspect of the D IP flexion crease. It was not repaired. The laceration through the flexor tendon sheath was found proximal to the A4 vincent. The proximal cut end of the FDP t endon was located within the A3 vincent and restrained from further migration by the underlying vincula. The distal cut end was located at about the D IP joint, distal to the A4 vincent. The wound was washed out and debrided of any nonviable tissue. Our attention was 1st turned to the proximal cut end of the FDP tendon. I passed some 4-0 FiberWire through the end of the tendon. I then passed the suture from proximal to distal through the A4 vincent, including the needle. After cutting the vincula I was able to pass the proximal cut end of the FDP tendon for through the A4 vincent. I then placed a 25 gauge needle through the flexor tendons at about the palmar digital crease to hold the FDP tendon in place for the repair. I then performed a 4 core suture repair of the FDP tendon distal to the A4 vincent, and using the 4-0 FiberWire. An epitendinous repair was then performed using some 6 0 Prolene suture. There was no gapping at the repair site with some gentle motion of the middle finger, and I was satisfied with our repair. I think it is likely that the repair will be able to pass beneath the A4 vincent, but I did not attempt this as I did not want to stress the repair in such a manner.. At this point the tourniquet was deflated and hemostasis obtained with a brief period of local pressure and bipolar electrocautery. The wound was copiously irrigated with normal saline. The the skin edges were reapproximated with 4-0 nylon suture. The wound was infiltrated with some 0.5% plain ropivacaine for postop pain control and a sterile dressing was applied. A dorsal blocking splint was then applied holding the MCP and PIP joints in a flexed position. The patient appears to have tolerated the procedure well and with no complications. All digits were well vascularized conclusion of the case.
[2024-03-25 16:03] VITALS: BP 116/63; PULSE 64; RESP 16; TEMP 36.6; O2SAT 98
[2024-03-25 16:08] VITALS: BP 114/69; PULSE 67; RESP 16; O2SAT 98
[2024-03-25 16:13] VITALS: BP 112/62; PULSE 62; RESP 16; O2SAT 98
[2024-03-25 16:18] VITALS: BP 114/63; PULSE 69; RESP 18; O2SAT 96
[2024-03-25 16:33] VITALS: BP 110/67; PULSE 72; RESP 18; TEMP 36.6; O2SAT 97
== END 2024-03-25 17:05 | disposition home or self-care (01) ==
PROVIDERS: PCP Internal Medicine; Visit Provider Orthopaedic Surgery
PROC: (CPT 26356; principal; 2024-03-25 13:00)
DX: S66.123A Laceration of flexor muscle, fascia and tendon of left middle finger at wrist and hand level, initial encounter (principal); S64.493A Injury of digital nerve of left middle finger, initial encounter; W26.0XXA Contact with knife, initial encounter; Y93.G1 Activity, food preparation and clean up; Y92.9 Unspecified place or not applicable; Y99.9 Unspecified external cause status
CPT/HCPCS: 26356; J0690; J1100; J2250; J2405; J2704; J2795; J3010

== ENCOUNTER → 2024-03-25 10:36 | Outpatient (BNV) | payer OTHER, SELFPAY | PROVIDERS: PCP Internal Medicine; Visit Provider Orthopaedic Surgery | DX: S66.123A Laceration of flexor muscle, fascia and tendon of left middle finger at wrist and hand level, initial encounter (principal); S64.493A Injury of digital nerve of left middle finger, initial encounter | CPT/HCPCS: 26356 ==

== ENCOUNTER 2024-04-06 13:20 | Outpatient (AMB) | payer OTHER, SELFPAY ==
--- NOTE | 2024-04-06 13:27 | MHC.OFFVIS ---
Vital Signs 04/06/24 13:29 Height 5 ft 8 in Weight 215 lb BMI 32.7 Handedness Right Intake Visit Reasons: PO - Lt 3rd Finger flexor tendon 03/25/24 AR Intake Note: Jesus is a 28 year old right hand dominant male who presents today for post op evaluation s/p left 3rd finger flexor tendon done 03/25/[address] Adams. Patient reports his pain has improved. There is a small 1 cm area at the distal aspect of finger that appears to be open. Sutures were removed today and steri strips applied. Allergies No Known Allergies Allergy (Verified 04/06/24 13:29) HPI HPI PO - Lt 3rd Finger flexor tendon 03/25/24 AR: Details: Jesus is a 28 year old right hand dominant man who returns S/P left middle finger flexor digitorum profundus repair in zone 2, DOS: 03/25/24, DOI: 03/13/24. He was cutting an Avocado, trying to remove the seed, and cut his finger with a steak knife. He says he is doing well and his pain has improved. He is concerned about part of his laceration that may be opening. He says his sensation is improving but still numb to the side of the tip of his finger. He had an OT appointment on 03/30/24 but did not attend. 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 Sutures removed and Steri-Strips applied Finger held in slightly flexed position at the D IP and PIP joints. Numbness unchanged in the radial aspect of the middle finger. Normal sensation in the ulnar nerve distribution of the middle finger, and normal sensation to the tips of all other digits Cap refill is brisk Psych Appearance: grossly normal Affect: normal affect Attitude: cooperative Assessment & Plan Assessment & Plan (1) Laceration of flexor muscle, fascia and tendon of left middle finger at wrist and hand level, initial encounter: Code(s): S66.123A - Laceration of flexor muscle, fascia and tendon of left middle finger at wrist and hand level, initial encounter Category: Medical (2) Digital nerve laceration, finger: Comment: Candy Code(s): S64.40XA - Injury of digital nerve of unspecified finger, initial encounter Category: Medical Plan Assessment & Plan: 1. Left middle finger flexor digitorum profundus tendon laceration, S/P FDP repair in zone 2 FDS intact. DOI: 03/13/24 DOS: 03/25/24 2. Left middle fingertip numbness, in the radial digital nerve distribution DOI: 03/13/24 Laceration was at the D IP flexion crease in the area of the radial digital nerve. It was not repaired. The patient appears to be doing well post-operatively Sutures were removed today. I educated him about the post-operative course I discussed activity modifications He will stay in his dorsal blocking splint until he is seen by OT on Friday. He did not attend his previous OT hand therapy appointment. I ordered a new OT hand therapy appointment to have a dorsal blocking splint made, to be worn for the next 4 weeks. He will also work on flexor tendon protocol. They gave him an appointment for Friday04/12/2024 He will follow up in 3-4 weeks Please note that greater than 30 minutes was spent with this patient going over the history, evaluating the patient and radiographs, formulating possible treatment options, discussing them with the patient, and documenting the visit. Scribed for Rose Adams MD by jennifer Lamibe, on 04/06/24 at 1:55 PM, EST. Medications: Discontinued oxycodone-acetaminophen 5-325 mg Partial Fill upon patient request. Discontinued Reason: Patient Completed Course 1 tab PO Q6H PRN 25 tabs 0RF pain Scribe Plan - Not visible on output: Scribed for Rose Adams MD by jennifer Lam, on [ ] at [ ], EST. Coding Level of Care Code Global (75754) Diagnoses Laceration of flexor muscle, fascia and tendon of left middle finger at wrist and hand level, initial encounter S66.123A Digital nerve laceration, finger S64.40XA
[2024-04-06 13:29] VITALS: BMI 32.7
== END 2024-04-06 14:46 | disposition home or self-care (01) ==
PROVIDERS: PCP Internal Medicine; Visit Provider Orthopaedic Surgery
DX: S66.123A Laceration of flexor muscle, fascia and tendon of left middle finger at wrist and hand level, initial encounter (principal); S64.40XA Injury of digital nerve of unspecified finger, initial encounter
CPT/HCPCS: 99024

== ENCOUNTER → 2024-04-06 13:20 | Outpatient (BNVA) | payer OTHER, SELFPAY | PROVIDERS: PCP Internal Medicine; Visit Provider Orthopaedic Surgery ==

== ENCOUNTER 2024-04-22 14:56 | Day surgery (SDC) | payer OTHER, SELFPAY ==
[2024-04-22 14:57] VITALS: BP 128/82; PULSE 82; RESP 16; TEMP 37.1; O2SAT 97; BMI 34.3
--- NOTE | 2024-04-22 15:01 | ED.GENADULT ---
HPI - General Adult General Chief complaint: General Medical Stated complaint: piece of food stuck in throat Time Seen by Provider: 04/22/24 15:18 Source: patient Mode of arrival: ambulatory Limitations: no limitations History of Present Illness ED Provider: Carolee SAM HPI narrative: This is a 28-year-old male presenting to the emergency department complaints of foreign body sensation in throat status post eating chicken at approximately 13:00 today. Patient reports about a month and a half ago he had a similar episode with steak, he required upper endoscopy to remove it. He reports this was his 1st bite of chicken prior to this the last time he ate was 03:00. Patient reports it is very uncomfortable. Dr. Adkins saw him last time. Patient is speaking in full sentences controlling secretions well. Denies changes in voice, chest pain, shortness of breath, nausea and vomiting. Related Data Home Medications ?Medication ?Instructions ?Recorded ?Confirmed No Known Home Meds 04/06/24 04/06/24 Allergies Allergy/AdvReac Type Severity Reaction Status Date / Time No Known Allergies Allergy Verified 04/22/24 15:01 Review of Systems Review of Systems: Yes all other systems are reviewed and are negative PMFSH Past Medical History Attestation statement: The following information was validated with the patient. 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 patient presents to the ED for chicken stuck in throat. Patient has pmh of food bolus with steak one month ago and required endocscopy for removal. Patient states no drooling or vomitting. drank gingerale, but still has some discomfort. Patient is speaking in full sentences. Negative for any vomiting. Patient to be evaluated [facility] Reevaluation(s) Reevaluation #1: Spoke to GI Dr. Adkins who recommends 1 g of IV glucagon, he will come in to evaluate patient patient will likely need upper endoscopy. Time: 15:37 Reevaluation #2: Re-evaluation after nitro patient is still very uncomfortable unable to tolerate p.o. fluids. Plan at this time patient will go to the OR for an upper endoscopy done by Dr. Adkins Time: 17:09 Medications Administered Discontinued Medications Generic Name Dose Route Start Last Admin Trade Name Freq PRN Reason Stop Dose Admin Glucagon 1 mg 04/22/24 15:36 04/22/24 16:10 Glucagon Hcl 1 Mg Vial IVPUSH 04/22/24 15:37 1 mg ONCE ONE Administration Nitroglycerin 0.4 mg 04/22/24 16:23 04/22/24 16:41 Nitroglycerin 0.4 Mg Tab.Subl SUBLINGUAL 04/22/24 16:24 0.4 mg ONCE ONE Administration Medical Decision Making Medical Decision Making [facility] Narrative: 28-year-old male presents with foreign body sensation in throat status post eating chicken. Physical exam benign. History and physical exam concerning for food bolus in his esophagus versus stricture versus esophagitis versus ulceration versus Schatzki ring. Unlikely acute respiratory distress, threat to airway. Plan will speak to GI about this patient given his history. Differential Diagnosis Differential Diagnoses: The differential diagnosis associated with the presentation includes History and physical exam concerning for food bolus in his esophagus versus stricture versus esophagitis versus ulceration versus Schatzki ring. Unlikely acute respiratory distress, threat to airway. Admission/Observation Consideration of admission/observation: Escalation of care including admission/observation considered [place] Consult Healthcare Provider Management of the patient was discussed with: Industrial Relations Director (GI ) Lab Data 04/22/24 16:12 04/22/24 16:12 Labs: Lab Results 04/22/24 Range/Units 16:12 WBC 7.4 (4.8-10.8) X10*3/uL RBC 5.03 (4.60-5.80) X10*6/uL Hgb 15.5 (14.0-18.0) g/dl Hct 44.3 (42.0-52.0) % MCV 88.1 (80.0-98.0) fL MCH 30.8 (27.0-33.0) pg MCHC 35.0 (31.0-36.0) g/dl RDW 12.2 (11.0-16.0) % Plt Count 178 (160-400) X10*3/uL MPV 10.8 (9.4-12.4) fL Immature Gran % (Auto) 0.5 H (0.0-0.4) % Neut % (Auto) 64.2 (45-73) % Lymph % (Auto) 24.2 (20-40) % [place] % (Auto) 5.9 (2-11) % Eos % (Auto) 4.4 H (0-4) % Baso % (Auto) 0.8 (0-2) % Lymph # (Auto) 1.8 (1.2-4.9) X10*3/uL [place] # (Auto) 0.4 (0.1-1.2) X10*3/uL Eos # (Auto) 0.3 (0.0-0.4) X10*3/uL Baso # (Auto) 0.1 (0.0-0.2) X10*3/uL Abs Immat Gran (auto) 0.04 H (0.00-0.03) X10*3/uL Absolute Neuts (auto) 4.8 (2.0-8.3) x10*3/uL Absolute Nucleated RBC 0.000 (0.0-0.012) X10*3/uL Nucleated RBC % (auto) 0.0 (0.0-0.2) /100WBC Sodium 142 (135-145) mmol/L Potassium 4.1 (3.3-5.1) mmol/L Chloride 104 (96-108) mmol/L Carbon Dioxide 30 H (22-29) mmol/L Anion Gap 12 (12-20) BUN 11 (9-16) mg/dL Creatinine 1.03 (0.5-1.4) mg/dL Estim Creat Clear Calc 122.6 Estimated GFR > 60 Random Glucose 101 (60-115) mg/dL Calcium 10.5 H D (8.4-10.2) mg/dL Total Bilirubin 0.5 (0.0-1.0) mg/dL AST 19 (5-37) U/L ALT 28 (0-40) U/L Alkaline Phosphatase 58 (39-117) U/L Total Protein 7.5 (6.5-8.0) g/dL Albumin 4.7 (3.5-5.0) g/dL External Record Review External record reviewed: Office record, Outpatient record, Prior outpatient labs and Prior outpatient radiology Critical Care Time Critical Care Time Critical Care Time: Yes Total Critical Care Time: 35 Attestation: I attest to this time spent taking care of the patient, obtaining history, physical, reviewing labs, imaging, speaking to my attending, specialist or hospitalist. Discharge Plan Discharge Clinical Impression: Food impaction of esophagus Patient Disposition: Still a Patient
[2024-04-22] MEDS: glucagon HCL 1 MG VIAL IVPUSH (16:10)
[2024-04-22 16:20] LABS: MANUAL DIFF FLAG NO
[2024-04-22 16:21] LABS: Basophils Absolute Auto 0.1 X10*3/uL (0.0-0.2); Basophils Percent Auto 0.8 % (0-2); Eosinophils Absolute Auto 0.3 X10*3/uL (0.0-0.4); Eosinophils Percent Auto 4.4 % (0-4); Hematocrit 44.3 % (42.0-52.0); Hemoglobin 15.5 g/dl (14.0-18.0); Imm Gran Abs Auto 0.04 X10*3/uL (0.00-0.03); Imm Gran Pct Auto 0.5 % (0.0-0.4); Lymphocytes Absolute Auto 1.8 X10*3/uL (1.2-4.9); Lymphocytes Percent Auto 24.2 % (20-40); Mean Corpuscular Hemoglobin 30.8 pg (27.0-33.0); Mean Corpuscular Volume 88.1 fL (80.0-98.0); Mean Platelet Volume 10.8 fL (9.4-12.4); Monocytes Absolute Auto 0.4 X10*3/uL (0.1-1.2); Monocytes Percent Auto 5.9 % (2-11); Neutrophils Absolute Auto 4.8 x10*3/uL (2.0-8.3); Neutrophils Percent Auto 64.2 % (45-73); Platelet Count 178 X10*3/uL (160-400); Red Blood Count 5.03 X10*6/uL (4.60-5.80); Red Cell Distribution Width 12.2 % (11.0-16.0); White Blood Count 7.4 X10*3/uL (4.8-10.8)
[2024-04-22 16:34] LABS: Alanine Aminotransferase 28 U/L (0-40); Albumin Level 4.7 g/dL (3.5-5.0); Alkaline Phosphatase 58 U/L (39-117); Anion Gap 12 (12-20); Aspartate Amino Transferase 19 U/L (5-37); Bilirubin Total 0.5 mg/dL (0.0-1.0); Blood Urea Nitrogen 11 mg/dL (9-16); Calcium 10.5 mg/dL (8.4-10.2); Carbon Dioxide 30 mmol/L (22-29); Chloride 104 mmol/L (96-108); Creatinine Clr Calc Pharmacy 122.6; Estimated Glomerular Filt Rate > 60; Glucose Random 101 mg/dL (60-115); Potassium 4.1 mmol/L (3.3-5.1); Sodium 142 mmol/L (135-145); Total Protein 7.5 g/dL (6.5-8.0)
[2024-04-22 16:41] VITALS: BP 139/83; PULSE 68
[2024-04-22] MEDS: Nitroglycerin 0.4 MG TAB.SUBL SUBLINGUAL (16:41)
--- NOTE | 2024-04-22 17:23 | PC.NURSE ---
pt presents to ED from home with complaints of foreign body sensation in throat after eating chicken. Pt has been unable to tolerate PO since. Attempted to dislodge bolus with carbonation, without effect. 20G Iv was placed in R-AC, basic labs obtained. Glucagon 1gm given without effect. MD Adkins met with pt at bedside, nitro given without effect, plan is for pt to have bolus removed in the OR
--- NOTE | 2024-04-22 17:45 | PC.NURSE ---
report given to Short Stay- pt to go to OR
--- NOTE | 2024-04-22 17:46 | PM.EVENT ---
Event Note Date of Service: 04/22/24 Event Note: GI Consult-Full note dictated Imp: Esophageal obstruction from chicken refractory to medical therapy. Had same episode in 02/2024 from [facility]. Rec: EGD today. Full consent obtained for this, including risks of bleeding and perforation. Will obtain biopsies to R/O EoE. Thanks Time Spent With Patient Time: Total time managing care of this patient today ____ minutes.
--- NOTE | 2024-04-22 17:49 | MHC.SHP ---
Pre-Procedural Eval Section A - 24 Hr Update-Section A only Date of Service: 04/22/24 The patient is an INPATIENT: No Changes since office visit: No Cold of Flu in the past 2 weeks, No New Medical Problems, No Changes in Medication and No Patient answered all questions The patient has been examined within 24 hours of the surgical procedure. The History & Physical has been completed within 30 days and I have reviewed it.: Yes Section B - Complete if H&P > 30 days Chief Complaint: piece of food stuck in throat Allergies: Allergies Allergy/AdvReac Type Severity Reaction Status Date / Time No Known Allergies Allergy Verified 04/22/24 15:01 Plan I have reviewed the history and physical and performed a pertinent physical examination on my patient. No changes have occurred unless specified. Time Spent With Patient Time: Total time managing care of this patient today ____ minutes.
--- NOTE | 2024-04-22 18:11 | HO.ANESPROP2 ---
HPI - Anesthesia Eval Consult details Narrative: Food impaction - esophagus PMFSH Active Problems Active Problems: All Active Problems Digital nerve laceration, finger (Acute) Laceration of flexor muscle, fascia and tendon of left middle finger at wrist and hand level, initial encounter (Acute) Food impaction of esophagus (Acute) Biceps tendonitis on right (Acute) Right upper limb pain (Acute) COVID-19 (Acute) Family History Family history of problems with anesthesia: No Surgical History Surgical History H/O esophagogastroduodenoscopy History of Problems with Anesthesia: No Social History Social History Alcohol intake: current Alcohol intake frequency: holidays/special occasions only Patient Tobacco Use Status: Never used Tobacco Smoked in Last 30 Days: No Advance Directives: No Advance Directives Information Provided: No Current occupational status: employed 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 Allergies Allergy/AdvReac Type Severity Reaction Status Date / Time No Known Allergies Allergy Verified 04/22/24 15:01 Home Medications ?Medication ?Instructions ?Recorded ?Confirmed ?Last Taken ?Type No Known Home Meds 04/06/24 04/06/24 Unknown History Exam Height,Weight and Vital Signs: Height 5 ft 8 in Weight 102.3 kg Last Vital Signs Temp 98.8 F 04/22/24 14:57 Pulse 68 04/22/24 16:41 Resp 16 04/22/24 14:57 BP 139/83 04/22/24 16:41 Pulse Ox 97 04/22/24 14:57 O2 Del Method Room Air 04/22/24 14:57 Pertinent Lab Results Pertinent Lab Results: Laboratory Tests 04/22/24 16:12 WBC 7.4 RBC 5.03 Hgb 15.5 Hct 44.3 MCV 88.1 MCH 30.8 MCHC 35.0 RDW 12.2 Plt Count 178 MPV 10.8 Immature Gran % (Auto) 0.5 H Neut % (Auto) 64.2 Lymph % (Auto) 24.2 [place] % (Auto) 5.9 Eos % (Auto) 4.4 H Baso % (Auto) 0.8 Lymph # (Auto) 1.8 [place] # (Auto) 0.4 Eos # (Auto) 0.3 Baso # (Auto) 0.1 Abs Immat Gran (auto) 0.04 H Absolute Neuts (auto) 4.8 Absolute Nucleated RBC 0.000 Nucleated RBC % (auto) 0.0 Sodium 142 Potassium 4.1 Chloride 104 Carbon Dioxide 30 H Anion Gap 12 BUN 11 Creatinine 1.03 Estim Creat Clear Calc 122.6 Estimated GFR > 60 Random Glucose 101 Calcium 10.5 H D Total Bilirubin 0.5 AST 19 ALT 28 Alkaline Phosphatase 58 Total Protein 7.5 Albumin 4.7 Airway Mallampati Class: I TM Dist: >3cm Neck ROM: Full Loose/Missing/Broken Teeth: No Heart: RRR Lungs: CTA Assessment and Plan Assessment Anesthesia Assessment: Anesthesia Plan Discussed and Chart Reviewed Final Anesthetic Review Family History of Problems with Anesthesia: No History of Problems with Anesthesia: No NPO: No ASA Class: I and Emergency Final Preanesthetic Review: No Changes in Pt Med Stat, Meds/Allgs Chart Reviewed, Consent Obtained/Reviewed and Anes Risks/Benef Reviewed Patient Risk: Low Procedure Risk: Low Anesthetic Plan Anesthetic Plan: GA Disposition: Standard PACU
[2024-04-22 18:38] VITALS: BP 130/79; PULSE 84; RESP 15; TEMP 37.2; O2SAT 97
[2024-04-22 18:53] VITALS: BP 132/83; PULSE 81; RESP 16; TEMP 36.6; O2SAT 98
--- NOTE | 2024-04-22 18:57 | PM.OP ---
Brief Operative Note Date of Service: 04/22/24 Pre-op diagnosis: Esophageal obstruction Post-op diagnosis: other (Same, esophagitis, hiatal hernia, R/O EoE) Procedure: Upper endoscopy with removal of food bolus Surgeon: Jerald Adkins MD Anesthesia: MAC Was an Virtual Classroom Manager used for this Procedure?: No Estimated blood loss (mL): 0 Pathology: other (A. Esophagus 20-25cm) Condition: stable Disposition: PACU
--- NOTE | 2024-04-22 20:51 | CONS_ITS ---
DATE OF SERVICE: 04/22/2024 REASON FOR CONSULTATION: Acute dysphagia in relation to esophageal obstruction from food. HISTORY OF PRESENT ILLNESS: This has been obtained from the patient and the medical record. The patient is a 28-year-old male, well known to me from an ER visit in February when he presented with an esophageal obstruction from steak. He had not had previous problems with that. He underwent an upper endoscopy at that time revealing a large meat bolus in the distal esophagus, which required about an hour to be able to break up and then removed. There was no underlying esophageal stricture nor ring noted at that time. He was discharged with a prescription for omeprazole, but did not take that. In any event, he reports he has been doing well from that standpoint without any further episodes of dysphagia. He has been eating carefully, but has not needed to cut up his food in small pieces. He has basically been eating normally. However, today he was eating some chicken and developed an esophageal obstruction from that with inability to swallow liquids and some secretions. He has been refractory to glucagon and sublingual nitroglycerin. The symptoms of dysphagia persist. He denies any chest pain or shortness of breath. MEDICATIONS: At home, none. PAST MEDICAL HISTORY: Esophageal obstruction from steak in February 2024. Recent hand surgery for a steak knife injury. He denies any medical problems such as diabetes, asthma, or heart disease. He has had no other significant surgeries. 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 He does not smoke nor use any significant amount of alcohol, although did have some alcohol last night. FAMILY HISTORY: Noncontributory. REVIEW OF SYSTEMS: CONSTITUTIONAL: He had been feeling fine up until this episode today. CARDIAC: No chest pain. PULMONARY: No coughing or hemoptysis. GI: As above. URINARY: No dysuria. No hematuria. NEUROLOGIC: No headache or seizures. PHYSICAL EXAMINATION: GENERAL: The patient is a pleasant, alert, comfortable appearing male. SKIN: Warm and dry. NECK: Supple without lymphadenopathy or crepitus. CHEST: Clear bilaterally. There is no chest wall crepitus. No tenderness. CARDIAC: Normal S1, S2. ABDOMEN: Soft, nondistended, nontender. EXTREMITIES: Without edema. IMPRESSION: Given the patient's clinical history, he will undergo upper endoscopy today on an urgent basis due to refractory esophageal obstruction from a piece of chicken. Full consent has been obtained from him for this, including risks of bleeding and perforation. He was advised that he may need general anesthesia for this, depending upon the findings. I will obtain biopsies from the esophagus to rule out eosinophilic esophagitis as a cause of his recurrent obstructions, although on the previous endoscopy, I did not visualize any sign of esophageal rings nor other mucosal suspicion for eosinophilic esophagitis. Full consent has been obtained from him for the endoscopy, including risks of bleeding and perforation. This has been discussed with him in detail and he is comfortable with the plan. MD KELLY Olivera/DOLORES / [phone]
--- NOTE | 2024-04-22 21:37 | OP_ITS ---
DATE OF SERVICE: 04/22/2024 SURGEON: Jerald Adkins MD INDICATIONS: The patient presents for evaluation of acute dysphagia in relation to esophageal obstruction from food. Full consent is obtained from him for this, including risks of bleeding and perforation. PREOPERATIVE DIAGNOSIS: Esophageal obstruction from food. POSTOPERATIVE DIAGNOSIS: PROCEDURE PERFORMED: Upper endoscopy for removal of esophageal food bolus. ESTIMATED BLOOD LOSS: COMPLICATIONS: ANESTHESIA: Medication use, monitored anesthesia care. ASSISTANTS: SPECIMENS: POSTOPERATIVE DIAGNOSES: Esophageal obstruction from food, distal esophagitis, hiatal hernia, rule out eosinophilic esophagitis. DESCRIPTION OF PROCEDURE: The patient was placed in the left lateral decubitus position. The Olympus video gastroscope was passed in the posterior oropharynx and upper esophagus under direct vision. The scope was passed slowly into the distal esophagus. At approximately 30 cm, there was a food bolus that was easily pushed into the stomach with the use of a biopsy forceps. The stomach and duodenum were not inspected due to the food and liquid in the stomach. The scope was withdrawn back into the esophagus. There was a small hiatal hernia. The gastroesophageal junction at 35 cm did appear to be inflamed with some erythema, edema, friability, and some irregularity. There was no ulceration, mass, nor stricture. There was no definitive Cintron's mucosa. Biopsies were not obtained. The scope was withdrawn through the remainder of the esophagus, which appeared normal. I did not visualize any sign of esophageal rings, other mucosal abnormalities, nor ulceration. Biopsies were obtained between 20 and 25 cm to rule out eosinophilic esophagitis. The scope was then withdrawn from the patient. He tolerated the procedure well and was returned to recovery area in stable condition. IMPRESSION: 1. Esophageal obstruction due to food bolus, status post endoscopic removal. 2. Esophagitis. 3. Hiatal hernia. 4. Rule out eosinophilic esophagitis. PLAN: The results of the biopsies will be checked. He will be given a prescription to use omeprazole 40 mg daily. He will be given an appointment to see me in followup as well. He was advised to continue to eat carefully. He may need further evaluation with a barium swallow and barium tablet, as well as with esophageal motility studies, if the problems with dysphagia persist. This has all been discussed with his . MD KELLY Olivera/DOLORES / [id number] [facility]ITALRamsey
--- NOTE | 2024-04-23 16:03 | HO.POSTANES ---
Post Anesthesia Evaluation Post Anesthesia Evaluation Date of Service: 04/23/24 Anesthesia: Monitored Mental Status: Awake Pain Control: Satisfactory Nausea/Vomiting: None Hydration: Adequate Anesthesia-Related Issues: No Anes. Related Issues
== END 2024-04-22 19:01 | disposition home or self-care (01) ==
LOC: HO.ED 15:40 → HO.SSS 17:12
PROVIDERS: Physician Assistant; Emergency Provider Emergency Medicine; PCP Internal Medicine; Visit Provider Internal Medicine
PROC: 0DJ08ZZ Inspection of Upper Intestinal Tract, Via Natural or Artificial Opening Endoscopic (ICD-10-PCS; CPT 43235; principal; 2024-04-22 18:00)
DX: T18.128A Food in esophagus causing other injury, initial encounter (principal); W44.F3XA Food entering into or through a natural orifice, initial encounter; R13.10 Dysphagia, unspecified; K20.80 Other esophagitis without bleeding; Y93.89 Activity, other specified; Y92.9 Unspecified place or not applicable; Y99.9 Unspecified external cause status; K44.9 Diaphragmatic hernia without obstruction or gangrene
CPT/HCPCS: 43239; 36415; 80053; 85025; 88305; 96374; 99284; 99285; J1610; J2704; J3010

== ENCOUNTER 2024-05-04 09:08 | Outpatient (AMB) | payer OTHER, SELFPAY ==
--- NOTE | 2024-05-04 09:11 | A.OFFVIS_ITS ---
Vital Signs 05/04/24 09:13 Handedness Ambidextrous Intake Visit Reasons: PO - Lt 3rd Finger flexor tendon 03/25/24 AR Intake Note: Jesus is a 28 year old male who presents to the office today for a follow up Left 3rd Finger flexor tendon 03/25/24 AR. Patient is currently in OT twice a week, he had an appointment yesterday 05/03/24 and has his second one tomorrow 05/05/24. He expresses his fingers are a lot less swollen but still stiff, he can not not bend his finger all the way down to his palm yet but he is able to hold his fingers into a bend. He has concerns about his middle finger being sore and not being able to straight. He has a little bump on the volar apsect of his middle finger and occasionally states a tingling sensation where the small bump is. He wears his splint except when he does OT. Allergies No Known Allergies Allergy (Verified 05/04/24 09:18) HPI HPI PO - Lt 3rd Finger flexor tendon 03/25/24 AR: Details: Jesus is a 28 year old right hand dominant man who returns S/P left middle finger flexor digitorum profundus repair in zone 2, DOS: 03/25/24, DOI: 03/13/24. He was cutting an Avocado, trying to remove the seed, and cut his finger with a steak knife. He says he is doing well and his pain has improved. He continues to have stiffness and is not able to bring his middle finger fully closed to a fist. He does say his swelling has improved however. He says his sensation is improving still but he still has numbness in the radial side of his middle finger. He has been attending OT hand therapy an working on motion at home. He has been wearing his dorsal blocking splint as instructed, removing only during OT appointments. 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 Finger held in slightly flexed position at the DIP and PIP joints. I did not have him make a fist or extend today in clinic He could demonstrate active weak flexion and extension of the DIP joint. He has active motion in his other fingers He was seen today in his dorsal blocking splint, which he removed to demonstrate his OT hand therapy exercises. He does have a possible granuloma forming in the radial corner of the DIP joint. He says this has been getting smaller and is less raw than it was before Numbness has improved but is not yet normal in the radial digital nerve distribution of the middle finger. Normal sensation in the ulnar nerve distribution of the middle finger, and normal sensation to the tips of all other digits Cap refill is brisk Psych Appearance: grossly normal Affect: normal affect Attitude: cooperative Assessment & Plan Assessment & Plan (1) Laceration of flexor muscle, fascia and tendon of left middle finger at w rist and hand level, initial encounter: Code(s): S66.123A - Laceration of flexor muscle, fascia and tendon of left middle finger at wrist and hand level, initial encounter Category: Medical (2) Digital nerve laceration, finger: Comment: Candy Code(s): S64.40XA - Injury of digital nerve of unspecified finger, initial encounter Category: Medical Plan Assessment & Plan: 1. Left middle finger flexor digitorum profundus tendon laceration, S/P FDP repair in zone 2 FDS intact. DOI: 03/13/24 DOS: 03/25/24 2. Left middle fingertip numbness, in the radial digital nerve distribution DOI: 03/13/24 Improving but not yet normal at this time Laceration was at the DIP flexion crease in the area of the radial digital nerve . It was not repaired. The patient appears to be doing well post-operatively I educated him about the post-operative course I discussed activity modifications, he will continue to work on ROM & flexor tendon protocol, and with OT hand therapy. 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 He was given a note to remain out of work for the next 4 weeks, until his next appointment. We will re-evaluate at his next appointment. He will follow up in 4 weeks for a ROM check and to see how he is doing Scribed for Rose Adams MD by Sreekanth Miller medical billing coder, on 05/04/24 at 10:00 AM, EST. Scribe Plan - Not visible on output: Scribed for Rose Adams MD by Sreekanth Miller medical billing coder, on [ ] at [ ], EST. Coding Level of Care Code Global (13240) Diagnoses Laceration of flexor muscle, fascia and tendon of left middle finger at wrist and hand level, initial encounter S66.123A Digital nerve laceration, finger S64.40XA
== END 2024-05-04 10:11 | disposition home or self-care (01) ==
PROVIDERS: PCP Internal Medicine; Visit Provider Orthopaedic Surgery
DX: S66.123A Laceration of flexor muscle, fascia and tendon of left middle finger at wrist and hand level, initial encounter (principal); S64.40XA Injury of digital nerve of unspecified finger, initial encounter
CPT/HCPCS: 99024

== ENCOUNTER → 2024-05-04 09:08 | Outpatient (BNVA) | payer OTHER, SELFPAY | PROVIDERS: PCP Internal Medicine; Visit Provider Orthopaedic Surgery ==

== ENCOUNTER 2024-06-01 08:55 | Outpatient (AMB) | payer OTHER, SELFPAY ==
--- NOTE | 2024-06-01 08:58 | MHC.OFFVIS ---
Vital Signs 06/01/24 09:04 Height 5 ft 8 in Weight 225 lb BMI 34.2 Intake Visit Reasons: PO - Lt 3rd Finger flexor tendon 03/25/24 AR Intake Note: Jesus is a 28 yo right hand dominant male who presents today post-operatively s/p left 3rd finger flexor tendon repair done 03/25/[address] Adams. Patient reports no concerns today. He is working on getting his strength back. Patient reports he continues to do OT, twice a week, which has been helpful. Allergies No Known Allergies Allergy (Verified 06/01/24 09:05) HPI HPI PO - Lt 3rd Finger flexor tendon 03/25/24 AR: Details: Jesus is a 28 year old right hand dominant man who returns S/P left middle finger flexor digitorum profundus repair in zone 2, DOS: 03/25/24, DOI: 03/13/24. He was cutting an Avocado, trying to remove the seed, and cut his finger with a steak knife. He says he is doing well and has no complaints today. He has been attending OT hand therapy and has been improving his ROM. He is working on regaining his strength. He continues to wear his finger splint ~2 hours a day. He says his sensation is improving still but he still has numbness in the radial side of his middle finger. He says he now notices his finger gets sweaty, which he says was not happening 1 month ago. 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 Review of Systems Const All systems reviewed & are unremarkable except as noted in HPI and below Physical Exam Vital Signs: BMI result Body Mass Index 34.2 Const General: no acute distress and alert Orientation/consciousness: patient oriented x3 Neuro General: patient oriented x3 Extrem Other: Evaluation of Upper Extremity: The patient is alert, oriented, and in no acute distress Neuro: He has a very narrow area of numbness in the radial aspect of his middle finger, ~5mm wide, extending distally from radial side of laceration, with good sensation to central pad and tip of the finger Normal sensation in the ulnar nerve distribution of the middle finger, and normal sensation to the tips of all other digits Vascular: Cap refill brisk ROM: He can make a fist, with ~35-40 degrees of flexion at the DIP joint, with full flexion at the MCP & PIP joints ~5 degree flexion contracture at the PIP joint, which he is working on improving He does have a possible granuloma forming in the radial corner of the DIP joint. He says this has been getting smaller and is less raw than it was before Psych Appearance: grossly normal Affect: normal affect Attitude: cooperative Assessment & Plan Assessment & Plan (1) Laceration of flexor muscle, fascia and tendon of left middle finger at wrist and hand level, initial encounter: Code(s): S66.123A - Laceration of flexor muscle, fascia and tendon of left middle finger at wrist and hand level, initial encounter Category: Medical (2) Digital nerve laceration, finger: Comment: Candy Code(s): S64.40XA - Injury of digital nerve of unspecified finger, initial encounter Category: Medical Plan Assessment & Plan: 1. Left middle finger flexor digitorum profundus tendon laceration, S/P FDP repair in zone 2 FDS intact. DOI: 03/13/24 DOS: 03/25/24 2. Left middle fingertip numbness, in the radial digital nerve distribution DOI: 03/13/24 Improving but not yet normal at this time Persistent in an approximately 5 mm wide strip extending from the laceration distally on the radial side of the finger. Normal sensation in the central aspect of the pad and central aspect of the tip of the finger Laceration was at the DIP flexion crease in the area of the radial digital nerve and likely involved 1 of the branches. It was not repaired, and he appears to be doing well. The patient appears to be doing well post-operatively I discussed activity modifications, he will continue to work on ROM exercises at home, and with OT hand therapy. 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 He was given a note to return to work on 06/02/24 with a 2lb weight limit & time off for OT hand therapy for the next 6 weeks. He will follow up in 4-6 weeks for a ROM check and discuss his work status. I am hopeful we can return him back to full duty at that time. Scribed for Rose Adams MD by Sreekanth Miller, medical assistant, on 06/01/24 at 9:30 AM, EST. Coding Level of Care Code Global (77386) Diagnoses Laceration of flexor muscle, fascia and tendon of left middle finger at wrist and hand level, initial encounter S66.123A Digital nerve laceration, finger S64.40XA
[2024-06-01 09:04] VITALS: BMI 34.2
== END 2024-06-01 09:35 | disposition home or self-care (01) ==
PROVIDERS: PCP Internal Medicine; Visit Provider Orthopaedic Surgery
DX: S66.123A Laceration of flexor muscle, fascia and tendon of left middle finger at wrist and hand level, initial encounter (principal); S64.40XA Injury of digital nerve of unspecified finger, initial encounter
CPT/HCPCS: 99024

== ENCOUNTER → 2024-06-01 08:55 | Outpatient (BNVA) | payer OTHER, SELFPAY | PROVIDERS: PCP Internal Medicine; Visit Provider Orthopaedic Surgery ==

== ENCOUNTER 2024-06-17 15:30 | Outpatient (RCR) | payer OTHER, SELFPAY ==
--- NOTE | 2024-04-12 16:37 | MHC.OT.EP ---
[address] [phone] Occupational Therapy Plan of Care Patient Name: Jesus Diallo Date of Evaluation: 04/12/24 Diagnosis: L FDP repair zone 2 Pain Location: volar side of hand / digit LF Pain Score: 5 Pain Scale Used: Numeric (0 - 10) Aggravating Factors: Pt. could not quantify due to hand/ digit being immobilized for the last 3 weeks Alleviating Factors: Assessment: Pt is a 28 yr. old R hand dominant male who lacerated the FDP tendon of his L MF while using a steak knife to cut on 03/14/24. He went to urgent care in [place] and had stitches the MD there told him he had not lacerated the tendon. A few days later when pt. realized he had zero ROM of his DIP J he [place] [facility] [place] FDP tendon (zone 2) on 03/25. (MD noted in her surgical note that the radial nerve was lacerated and not repaired). Pt was supposed to attend OT therapy on 03/30/24 , but did not. He was referred to skilled OT therapy for fabrication of a DBS, increased ROM, strength, desensitization, scar care and increased functional use of his L hand Frequency and Duration: The patient will be seen 2 x s a week for 8 weeks Short Term Goals: Pt will be compliant w/ HEP Pt will be complaint w/ scar care Pt will be complaint w/ wear and care of his DBS Pt will gain 40 Of DIP J Flexion (50) Circle Beveler Goals: Pt will make a composite fist Pt's DASH score > 20 Pt will be compliant w/ strengthening techniques Treatment Plan: Therapeutic Exercise Therapeutic Activity Home Exercise Program Splinting Neuro Re-ed Patient Education Desensitization/Sensory Re-ed Edema Control ADL Training Ultrasound NMES Iontophoresis Paraffin Fluidotherapy MHP Cold Packs Joint Mobilization Soft Tissue Mobilization Kinesiotaping Other (see comments) Electronically Signed By: Emily Christian OTR/L Please Sign and return to therapist. Thank you once again for your referral.
--- NOTE | 2024-05-04 09:39 | MHC.OT.OP ---
[address] [phone] F: [phone] Occupational Therapy Progress Note Patient Name: Jesus Diallo Diagnosis: L FDP repair zone 2 Date of Surgery: 03/25/24 Date of Evaluation: 04/12/24 Treatments to Date: 9 Cancellations to Date: No Shows to Date: 1 Subjective: I've been working on getting the swelling down Pain Score: 2 Pain Location: volar sideof hand and MF Objective Measures: Status: Progressing Assessment: Pt tolerated therapy well today. He continues to be highly motivated and (can be hyper) focused on gaining AROM of his hand. We discussed performing his HEP and scar massage to encourage tendon excursion. He has mild edema in his hand / digit which has decreased since his last visit ; he was also given coban to wear at night. He is weaning form his splint and continuing to wear it around his three large dogs, to bed, and during strenuous activity( to avoid use of his affected hand). He reported pain w/ PIP J ROM (Stiffness) and a light mob was performed and he was encouraged to perform PROM and AROM of his PIP J to decrease stiffness (and a PIP J lag). He reports he can either overdue his HEP or reports not being too gentle w/ his HEP which we are working on. Post treatment on Friday he reported an increase in confidence. 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 Goals: Pt will make a composite fist Pt's DASH score > 20 Pt will be compliant w/ strengthening techniques Frequency and Duration: The patient will be seen 2xs a week 5 weeks Treatment Plan: Therapeutic Exercise Therapeutic Activity Home Exercise Program Splinting Neuro Re-ed Patient Education Desensitization/Sensory Re-ed Edema Control ADL Training Ultrasound NMES Iontophoresis Paraffin Fluidotherapy MHP Cold Packs Joint Mobilization Soft Tissue Mobilization Kinesiotaping Other (see comments) Electronically Signed By: Emily Christian OTR/L Reviewed/agree with student documentation: N/A Therapist:
--- NOTE | 2024-05-31 16:07 | MHC.OT.OP ---
[address] [phone] F: [phone] Occupational Therapy Progress Note Patient Name: Jesus Diallo Diagnosis: L FDP repair zone 2 Date of Surgery: 03/25/24 Date of Evaluation: 04/12/24 Treatments to Date: 17 Cancellations to Date: No Shows to Date: 1 Subjective: I feel like its improving; still a bit sore around the joint (PIP J) Pain Score: 2 Pain Location: volar sideof hand and MF Objective Measures: 05/31/24 [id number] (75PROM) (10 PIP J Lag due to immobilization) 100lbs R hand cardiographer L 40lbs L hand cardiographer Status: Progressing Assessment: Pt tolerated therapy well today. He continues to be highly motivated and (can be hyper) focused on gaining AROM of his hand. We discussed performing his HEP and scar massage to encourage tendon excursion. He has mild edema in his hand / digit which has decreased since his last visit ; he was also given coban to wear at night. He is weaning form his splint and continuing to wear it around his three large dogs, to bed, and during strenuous activity( to avoid use of his affected hand). He reported pain w/ PIP J ROM (Stiffness) and a light mob was performed and he was encouraged to perform PROM and AROM of his PIP J to decrease stiffness (and a PIP J lag). He reports he can either overdue his HEP or reports not being too gentle w/ his HEP which we are working on. Post treatment on Friday he reported an increase in confidence. He measured the following post tx today: 80 wrist flex 60 wrist ext MP J: 80 PIP J 75 and DIP J 25 Pt has a follow up w/ MD tomorroe 05/03/24 and would contiue to benefit from OT therapy and would benefit from NMES & US Short Term Goals: Pt will be compliant w/ HEP MET Pt will be complaint w/ scar care MET Pt will be complaint w/ wear and care of his DBS MET Pt will gain 40 Of DIP J Flexion (50) MET Custodial Goals: Pt will make a composite fist Pt's DASH score > 20 Pt will be compliant w/ strengthening techniques Frequency and Duration: The patient will be seen 2xs a week for 3 weeks Treatment Plan: Therapeutic Exercise Therapeutic Activity Home Exercise Program Splinting Neuro Re-ed Patient Education Desensitization/Sensory Re-ed Edema Control ADL Training Ultrasound NMES Iontophoresis Paraffin Fluidotherapy MHP Cold Packs Joint Mobilization Soft Tissue Mobilization Kinesiotaping Other (see comments) Electronically Signed By: Emily Christian OTR/L Reviewed/agree with student documentation: N/A Therapist:
== END 2024-07-02 14:55 | disposition home or self-care (01) ==
LOC: HO.OT 15:30
PROVIDERS: PCP Internal Medicine; Visit Provider Orthopaedic Surgery
DX: S66.123D Laceration of flexor muscle, fascia and tendon of left middle finger at wrist and hand level, subsequent encounter (principal); S64.40XD Injury of digital nerve of unspecified finger, subsequent encounter
CPT/HCPCS: 29125; 97035; 97110; 97112; 97140; 97166; 97530; 97535; 97760

== ENCOUNTER 2024-09-01 11:38 | Outpatient (AMB) | payer OTHER, SELFPAY ==
[2024-09-01 11:40] VITALS: BMI 34.2
--- NOTE | 2024-09-01 11:40 | MHC.OFFVIS ---
Vital Signs 09/01/24 11:40 Height 5 ft 8 in Weight 225 lb BMI 34.2 Intake Visit Reasons: OV-Lt 3rd Finger flexor tendon 03/25/24 AR Intake Note: Jesus is a 28 yo right hand dominant male who presents today post-operatively s/p left 3rd finger flexor tendon repair done 03/25/[address] Adams. Patient reports OT was helpful. He is able to make a full fist. 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 He is status post repair of his left middle finger FDP tendon in zone 2 on 03/25/2024. He also had a partial injury involving 1 of the branches of the radial digital nerve near the D IP joint. He has been working diligently with OT hand therapy. He has also been working and gradually increasing what he is doing. Jesus's very happy with the results of his surgery and therapy. 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 His laceration surgical incisions are all well healed. He can make a tightly closed fist with all digits including his left middle finger. He can bring all of his digits including the left middle finger out into full extension and placed them flat on the table, which is a nice improvement since his last visit. Sensation is intact to the majority of the pad of the middle finger, and to all except a small strip on the radial side of the distal phalanx level. He also feels like he has had some increased sensation since this started. He is happy to show me what he can do. Assessment & Plan Assessment & Plan (1) Laceration of flexor muscle, fascia and tendon of left middle finger at wrist and hand level, initial encounter: Code(s): S66.123A - Laceration of flexor muscle, fascia and tendon of left middle finger at wrist and hand level, initial encounter Category: Medical (2) Digital nerve laceration, finger: Comment: Candy Code(s): S64.40XA - Injury of digital nerve of unspecified finger, initial encounter Category: Medical Plan Assessment & Plan: 1. Left middle finger flexor digitorum profundus tendon laceration, S/P FDP repair in zone 2 FDS intact. DOI: 03/13/24 DOS: 03/25/24 2. Left middle fingertip numbness, in the radial digital nerve distribution DOI: 03/13/24 Laceration was at the DIP flexion crease in the area of the radial digital nerve and likely involved 1 of the branches. It was not repaired, and he appears to be doing well. The patient appears to be doing very well post-operatively with essentially full range of motion. He and the OT hand therapist did a nice job working together. He is very pleased with the results of his surgery, and feels like he is back to all of his normal activities. 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 He is released to all activities as tolerated He can follow up p.r.n. Coding Level of Care Code Est Pt Level 3 (04052) Diagnoses Laceration of flexor muscle, fascia and tendon of left middle finger at wrist and hand level, initial encounter S66.123A Digital nerve laceration, finger S64.40XA
== END 2024-09-01 12:16 | disposition home or self-care (01) ==
PROVIDERS: PCP Internal Medicine; Visit Provider Orthopaedic Surgery
DX: S66.123A Laceration of flexor muscle, fascia and tendon of left middle finger at wrist and hand level, initial encounter (principal); S64.40XA Injury of digital nerve of unspecified finger, initial encounter
CPT/HCPCS: 99213